=== PATIENT | female | born 1965 | race American Indian/Alaskan Native ===

== ENCOUNTER 2016-09-18 06:43 | Day surgery (SDC) | payer BC, OTHER ==
[2016-09-18] MEDS ORDERED: Lactated Ringers 1,000 ML IV SCH (06:45)
[2016-09-18] MEDS ORDERED: Sodium Chloride 0.9% 10 ML Syringe FLUSH PRN (06:45)
[2016-09-18] MEDS ORDERED: Midazolam 1 MG/ML 2 ML SDV IV ONE (08:00)
[2016-09-18] MEDS ORDERED: Propofol 200 MG/20 ML SDV IV ONE (08:00)
[2016-09-18] MEDS ORDERED: Lidocaine 2% 100 MG/5 ML Syringe IVPUSH ONE (08:00)
--- NOTE | 2016-09-18 08:46 | PCM.OPNOTE ---
- General Post-Op/Procedure Note Date of Surgery/Procedure: 09/18/16 Operative Procedure(s): egd with bx. c scope Findings: gastritis sigmoid diverticulosis Pre Op Diagnosis: abd pain. bleeding per rectum Post-Op Diagnosis: gastritis. sigmoid diverticulosis Primary Surgeon: Mike Turcios Anesthesia Provider: Jo Lambert Pathology: stomach Complications: None Condition: Good Free Text/Narrative:: see dictation
[2016-09-18 10:23] VITALS: BP 119/59
--- NOTE | 2016-09-18 13:30 | OR ---
DATE OF OPERATION: 09/18/2016 SURGEON: Mike Turcios MD PROCEDURE PERFORMED: Esophagogastroduodenoscopy with cold forceps biopsy and colonoscopy. PREOPERATIVE DIAGNOSES: Abdominal pain and bleeding per rectum. POSTOPERATIVE DIAGNOSES: Gastritis and sigmoid diverticulosis. INDICATIONS FOR PROCEDURE: This is a 51-year-old white female, who is referred with the above-mentioned complaints, claims primarily in the right upper quadrant. Ultrasound workup to date has been negative. She also notes that she has had some occasional bright red blood per rectum. She was offered and accepted an EGD and colonoscope. DESCRIPTION OF OPERATION: After an excellent IV sedation was administered, the bite-block was inserted. The flexible endoscope was passed without difficulty down the patient's esophagus, into the stomach. The stomach was insufflated. The scope was passed through the pylorus to the second portion of duodenum and slowly withdrawn. The following findings were noted. Duodenum is unremarkable. The stomach demonstrated mild gastritis. Biopsies were taken. Esophagus unremarkable. Attention was then turned to the colon. Digital rectal exam was performed. No marked abnormality was noted. The flexible colonoscope was inserted and advanced to the cecum. The prep was good. There were areas that we had to irrigate, but we did get an adequate view of the mucosa. The following findings were noted. Ascending colon, unremarkable. Transverse colon, unremarkable. Descending colon, unremarkable. Sigmoid, mild diverticulosis. Rectum and anus, unremarkable. On retroflexing the scope, there was really no evidence of internal hemorrhoids to explain the bleeding. The scope was removed. The patient was taken to recovery in good condition. /[id number] /DEMETRICEL
== END 2016-09-18 10:16 | disposition home or self-care (01) ==
LOC: FB.SDS 06:43
PROVIDERS: ATTEND Surgery
DX: K57.30 Diverticulosis of large intestine without perforation or abscess without bleeding (principal); K31.89 Other diseases of stomach and duodenum; I10 Essential (primary) hypertension; E11.9 Type 2 diabetes mellitus without complications; F43.10 Post-traumatic stress disorder, unspecified; J44.1 Chronic obstructive pulmonary disease with (acute) exacerbation; J45.909 Unspecified asthma, uncomplicated; Z88.1 Allergy status to other antibiotic agents; Z88.2 Allergy status to sulfonamides; Z88.8 Allergy status to other drugs, medicaments and biological substances; Z79.4 Long term (current) use of insulin; Z79.899 Other long term (current) drug therapy; Z79.2 Long term (current) use of antibiotics; Z79.82 Long term (current) use of aspirin; Z98.890 Other specified postprocedural states; F31.9 Bipolar disorder, unspecified; F32.9 Major depressive disorder, single episode, unspecified; F41.9 Anxiety disorder, unspecified; F17.210 Nicotine dependence, cigarettes, uncomplicated
CPT/HCPCS: 43239; 45378; 81025; 82962; 88305; 88342; J2250; J2704; J7120

== ENCOUNTER 2016-10-27 09:24 | Emergency (ER) | payer BC, OTHER ==
[2016-10-27] MEDS ORDERED: HYDROmorphone 2 MG/ML SDV IM ONE ×2 (10:31→11:58)
[2016-10-27] MEDS ORDERED: Ondansetron 4 MG Tab.DIS PO ONE (10:32)
--- NOTE | 2016-10-27 12:17 | CT ---
INDICATION: Severe T2 through T12 back pain, chronic with exacerbation, question compression fracture. CT THORACIC SPINE WITHOUT CONTRAST: Spiral 2.5-mm axial sections were obtained through the thoracic spine with sagittal and coronal reconstructions, and revealed dextroconcave scoliosis of the lower thoracic spine. Bridging hyperostotic changes are noted from the upper through the lower thoracic spine, most severe at the T7 through T12 levels. These bridging hyperostotic changes are seen anterolaterally. A healing fracture site that is transverse and vertical is also noted at the T8 vertebral body, involving its caudal right lateral aspect anteriorly and extending posteriorly. Sclerosis is noted at the fracture site, compatible with a healing fracture site of significant duration - this is not an acute process. A definite acute fracture or dislocation was not identified. In the lower thoracic spine, there are vacuum disk phenomena compatible with degenerative disk changes. IMPRESSION: 1. Healing fracture site T8 vertebral body in good position and alignment. 2. Bridging hyperostotic changes throughout almost the entire thoracic spine, with no significant degenerative changes seen at T1-2 and only minimal degenerative changes at T2-3. The remainder of the vertebral bodies shows bridging hyperostotic change. 3. Dextroconcave scoliosis lower thoracic spine centered at approximately T10 level. Report was called to Dr. Renteria at approximately 1125 hours, 10/27/2016. Total Exam DLP = 1657.18 mGy-cm. MTDD
[2016-10-27 12:59] VITALS: BP 123/64
--- NOTE | 2016-10-28 05:00 | ER ---
DATE SEEN: 10/27/2016 ADDENDUM: TIME SEEN: The patient was seen at 0948 hours. /[id number] LAQUITA/PRISCILLA
--- NOTE | 2016-11-01 15:01 | ER ---
DATE SEEN: 10/27/2016 HISTORY OF PRESENT ILLNESS: This 51-year-old has chief complaint of right upper quadrant and right lower chest discomfort. One week ago had a temperature of 102.6. She has had right upper quadrant pain off and on for the last 2 to 3 months, 5/ 10 in intensity. Now it is 10/10 in intensity. "I can't take the pain anymore." She has pain mostly in the subcostal region on the right side and it is difficult for her to sit or stand and notes that the pain decreases with careful decreased respiratory effort. She is currently groaning as she has so much pain. PAST MEDICAL HISTORY: Demonstrates 6 CAT scans from 01/23/2016 through 11/04/2011. Two ultrasounds of the abdomen. An MRI of the lumbar spine, 08/01/2013. Previous past medical history significant for migraines, chest pain, hypertension, abdominal pain, depression, suicidal behavior, and low back pain. She is morbidly obese at 320 pounds, 5 feet 5 inches (BMI 53.3). COPD, type 2 diabetes, and dyslipidemia. Juncal for depression - bipolar. Adderall for narcolepsy, falls asleep during the daytime and sleep dysfunction with obstructive sleep apnea secondary to her obesity resulting in difficulty sleeping at night and "the Adderall keeps her up." Psoriasis. Chronic migraines, joint pains, and mini strokes 2013. Previous EGD, 09/19/2016 and colonoscopy for abdominal rectal bleed . Documented gastritis and sigmoid diverticulosis. 01/23/2016, CT of the abdomen demonstrated liver fatty infiltrates (rule out NAFLD). Previous EKG, 09/14/2015, normal sinus rhythm. SOCIAL HISTORY: The patient lives alone. 4, para 4-0-0-4. Never . PAST SURGICAL HISTORY: Hysterectomy, lower back L5-S1 fusion, interbody fusion graft and farhan placement, and laminectomy. HABITS: Former smoker. Alcohol, occasionally in the last 9 months. ALLERGIES: Acetaminophen, Keflex, Cipro, codeine, Cataflam (diclofenac), prednisone-swelling, and Bactrim. Hives from acetaminophen. CURRENT MEDICATIONS: 1. Atorvastatin 10 mg daily. 2. Venlafaxine 25 mg daily. 3. Imitrex 50 mg as directed. 4. Zofran p.r.n. 5. Nitrostat p.r.n. 0.4 mg. 6. Juncal carbonate 300 mg b.i.d. 7. Lisinopril 20 mg daily. 8. Imdur 30 mg daily. 9. Insulin 60 units at bedtime. 10.Aspart 60 units t.i.d. 11.Vicodin. 12.Hydrochlorothiazide. 13.Dulera (formoterol/mometasone). 14.Fluticasone daily. 15.Colace daily. 16.Aspirin daily - 81 mg. 17.Adderall 25 mg daily. 18.Albuterol p.r.n. REVIEW OF SYSTEMS: GENERAL: She has fibromyalgia. She has pain all over. In general, it appears she dislikes people touching her. HEENT: Negative. No compromise in vision. No neck stiffness. She has poor dentition. CARDIORESPIRATORY: No shortness of breath. No chest pain. No irregular heartbeat. ABDOMEN: Markedly increased abdominal girth that makes it difficult for her to breathe. EXTREMITIES: Difficulty with walking because of extensive obesity. Marked joint aches. No swelling of ankles. PHYSICAL EXAMINATION: VITAL SIGNS: Blood pressure 114/72, heart rate 92, respirations 18, oxygen saturation 97% on room air, and temperature 38.1 degrees centigrade. CONSTITUTIONAL: The patient is massively obese, 55.3 BMI. She is uncomfortable. Has slight difficulty breathing because of massive obesity. HEENT: PERRLA intact. Pharynx without abnormality. Macroglossia. NECK: Very full neck. LUNGS: Clear to auscultation without rales. HEART: S1, S2. No irregular rate or rhythm. ABDOMEN: Soft, but massive increased abdominal girth. No hernia. CHEST: She has marked right chest discomfort. MUSCULOSKELETAL: On palpation of the T2 through L4-L5 spinous processes, there is marked tenderness. The most thoracic pain involves the lower 10 thoracic vertebrae. Marked pain and radiation to the right ribs 8, 9, 10 to the right chest, mostly involves the 8th rib. She has reproducible chest pain with the palpation of the 8th costochondral rib joint and the 9th and 10th subchondral joints. There are occasional rales, right anterior base. NEUROLOGIC: Deep tendon reflexes absent, upper and lower extremities. Marked obesity with no edema of the lower extremities. Dorsalis pedis is present and no clubbing of fingers. IMAGING: X-ray reveals subacute right anterolateral fracture of the base of the 8th vertebra. ASSESSMENT: 1. Morbid obesity. 2. Subacute right anterolateral fracture of the base of the 8th thoracic vertebra. This is causing referred right chest rib pain and RUQ pain referred to the abdomen by the cluneal nerves. 3. Obstructive sleep apnea. 4. Morbid obesity. 5. Chronic obstructive lung disease. 6. Hypertension. 7. Depression, not suicidal. 8. Chronic low back pain. 9. Type 2 diabetes. 10.Dyslipidemia. 11.Daytime narcolepsy whichse treat with Adeeral to keep awake during theday light hours and sleep disturbance at night secondary to Adderall keeping her awake. 12.Status post hysterectomy. 13.Status post laminectomy, L5-S1 fusion interbody graft with posterior farhan placement. 14.History of migraines. PLAN: The patient was treated with pain medicine and then will follow up with her doctor in a week, earlier if worse. /[id number] LAQUITA/PRISCILLA FIELD
== END 2016-10-27 12:40 | disposition home or self-care (01) ==
LOC: FB.ED 09:24
DX: S22.069A Unspecified fracture of T7-T8 vertebra, initial encounter for closed fracture (principal); E66.01 Morbid (severe) obesity due to excess calories; G47.33 Obstructive sleep apnea (adult) (pediatric); J44.9 Chronic obstructive pulmonary disease, unspecified; L40.9 Psoriasis, unspecified; G43.909 Migraine, unspecified, not intractable, without status migrainosus; I10 Essential (primary) hypertension; F32.9 Major depressive disorder, single episode, unspecified; E11.9 Type 2 diabetes mellitus without complications; E78.5 Hyperlipidemia, unspecified; F31.9 Bipolar disorder, unspecified; Z86.69 Personal history of other diseases of the nervous system and sense organs; Z88.8 Allergy status to other drugs, medicaments and biological substances; Z88.5 Allergy status to narcotic agent; Z79.899 Other long term (current) drug therapy; Z68.43 Body mass index [BMI] 50.0-59.9, adult; Z90.710 Acquired absence of both cervix and uterus; Z98.890 Other specified postprocedural states; Z79.4 Long term (current) use of insulin; Z79.82 Long term (current) use of aspirin; X58.XXXA Exposure to other specified factors, initial encounter
CPT/HCPCS: 36415; 72128; 80053; 96372; 99284; A9270; J1170

== ENCOUNTER 2017-07-24 12:57 | Emergency (ER) | payer BC, OTHER ==
--- NOTE | 2017-07-24 13:36 | EDM.PDOC ---
ED HPI GENERAL MEDICAL PROBLEM - General Chief Complaint: General Stated Complaint: CHEST PAIN Time Seen by Provider: 07/24/17 13:10 Source of Information: Reports: Patient History Limitations: Reports: No Limitations - History of Present Illness INITIAL COMMENTS - FREE TEXT/NARRATIVE: C/O LUQ pain since this AM no f/c/d, no n/v, no BM today, inc'd with DB and moving and walking EGD and colonoscopy 10m ago showed diverticulosis and gastritis works at [employer] also pain at R flank times years states HR inc'd 170 1m ago, not seen then, HR 115 now last saw PCP Dr Garland 1m ago for a cough - Related Data Allergies Allergy/AdvReac Type Severity Reaction Status Date / Time acetaminophen [From Percocet] Allergy Hives Verified 07/24/17 13:17 cephalexin monohydrate Allergy Difficulty Verified 07/24/17 13:17 [From Keflex] Breathing ciprofloxacin [From Cipro] Allergy Hives Verified 07/24/17 13:17 ciprofloxacin HCl Allergy Hives Verified 07/24/17 13:17 [From Cipro] codeine Allergy Hives Verified 07/24/17 13:17 diclofenac [From Cataflam] Allergy Hives Verified 07/24/17 13:17 prednisone Allergy Swelling Verified 07/24/17 13:17 sulfamethoxazole Allergy Other Verified 07/24/17 13:17 [From Bactrim] trimethoprim [From Bactrim] Allergy Other Verified 07/24/17 13:17 Home Meds: Home Meds Hydrochlorothiazide 25 mg PO DAILY 01/04/14 [History] Lisinopril [Prinivil] 20 mg PO DAILY 01/04/14 [History] Albuterol [Proventil HFA] 2 puff INH Q4H PRN 06/19/14 [History] Fluticasone Propionate [Flonase] 2 sprays NASBOTH DAILY PRN 06/19/14 [History] Formoterol/Mometasone [Dulera 100 MCG/5 MCG] 2 puff INH BID 06/19/14 [History] Insulin Aspart [NovoLOG] 60 units SQ TIDAC 06/19/14 [History] atorvaSTATin [Lipitor] 10 mg PO DAILY 06/19/14 [History] Insulin Detemir [Levemir] 60 units SQ BEDTIME 02/19/15 [History] Aspirin [Halfprin] 81 mg PO DAILY 04/29/15 [History] Docusate Sodium [Colace] 100 mg PO BID 04/29/15 [History] SUMAtriptan [Imitrex] 50 mg PO ASDIRECTED PRN 04/29/15 [History] Ondansetron [Zofran ODT] 4 mg PO Q6H PRN #7 tab.dis 01/23/16 [Rx] Isosorbide Mononitrate [Imdur] 30 mg PO DAILY 09/15/16 [History] Nitroglycerin [Nitrostat] 0.4 mg SL ASDIRECTED PRN 09/15/16 [History] Amphetamine/Dextroamphetamine [Adderall] 25 mg PO DAILY 09/18/16 [History] Hydrocodone/Acetaminophen [[place] 5-325] 5 - 325 mg PO Q4H PRN 09/18/16 [History] [place] Carbonate 300 mg PO BID 09/18/16 [History] Venlafaxine [Effexor] 25 mg PO DAILY 09/18/16 [History] HYDROmorphone HCl [Dilaudid] 2 mg PO Q6HR #20 tablet 10/27/16 [Rx] fentaNYL [Duragesic] 75 mcg TRDERM Q72H #6 patch 10/27/16 [Rx] Past Medical History HEENT History: Reports: Allergic Rhinitis Cardiovascular History: Reports: Heart Failure, High Cholesterol, Hypertension Respiratory History: Reports: Asthma, COPD, Sleep Apnea Other Gastrointestinal History: constipation [employer]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: , Other (See Below) Other OB/BYN History: Uterine tumor removal and Uterine cysts removal Musculoskeletal History: Reports: Arthritis Neurological History: Reports: TIA Psychiatric History: Reports: Anxiety, Depression, Psych Hospitalization(s), Suicide Attempt, Suicidal Ideation Endocrine/Metabolic History: Reports: Diabetes, Type II Oncologic (Cancer) History: Reports: Uterine Other Oncologic History: small tumor removed Dermatologic History: Reports: Psoriasis, Other (See Below) Other Dermatologic History: on lower legs - Infectious Disease History Infectious Disease History: Reports: Chicken Pox - Past Surgical History GI Surgical History: Reports: Colonoscopy Musculoskeletal Surgical History: Reports: None Other Musculoskeletal Surgeries/Procedures:: vertebral fusion 2014 Oncologic Surgical History: Reports: None Social & Family History - Family History HEENT: Reports: Glaucoma Cardiac: Reports: Heart Failure, Hypertension, [place] Respiratory: Reports: Asthma, COPD : Reports: Renal Disease/Insufficiency OBGYN: Reports: Fibroids Musculoskeletal: Reports: Arthritis, Back pain, Chronic, Fibromyalgia, Gout Other Neurological Family History: stroke Endocrine/Metabolic: Reports: Diabetes, type II Hematologic: Reports: Anemia Dermatologic: Reports: Other (See Below) Other Dermatologic Family History: open ulcers Oncologic: Reports: Breast, Renal, Uterine - Tobacco Use Smoking Status *Q: Former Smoker Years of Tobacco use: 39 Packs/Tins Daily: 2 Used Tobacco, but Quit: Yes Month Tobacco Last Used: 3 years ago Second Hand Smoke Exposure: No - Caffeine Use Caffeine Use: Reports: Soda - Alcohol Use Days Per Week of Alcohol Use: 1 Number of Drinks Per Day: 1 Total Drinks Per Week: 1 - Recreational Drug Use Recreational Drug Use: No ED ROS GENERAL - Review of Systems Review Of Systems: See Below Constitutional: Denies: Fever, Chills HEENT: Reports: No Symptoms Respiratory: Reports: No Symptoms Cardiovascular: Reports: No Symptoms Endocrine: Reports: No Symptoms GI/Abdominal: Reports: Abdominal Pain. Denies: Nausea, Vomiting : Reports: No Symptoms Musculoskeletal: Reports: No Symptoms Skin: Reports: No Symptoms Neurological: Reports: No Symptoms Psychiatric: Reports: No Symptoms Hematologic/Lymphatic: Reports: No Symptoms Immunologic: Reports: No Symptoms ED EXAM, GENERAL - Physical Exam Exam: See Below Exam Limited By: No Limitations General Appearance: Alert, WD/WN, Mild Distress, Other (nontoxic, alert, appears mildly uncomfortable) Eye Exam: Bilateral Eye: Normal Inspection Ears: Normal External Exam Nose: Normal Inspection Throat/Mouth: Normal Inspection, Normal Lips, Normal Teeth, Normal Gums, Normal Oropharynx, Normal Voice, No Airway Compromise Head: Atraumatic, Normocephalic Neck: Normal Inspection, Supple, Non-Tender, Full Range of Motion Respiratory/Chest: No Respiratory Distress, Lungs Clear, Normal Breath Sounds, No Accessory Muscle Use, Chest Non-Tender Cardiovascular: No Gallop, No JVD, No Rub, Tachycardia, Other (2/6 ANDRZEJ at LSB, quiet precordium, regular). No: Gallop/S3, Gallop/S4 GI/Abdominal: Normal Bowel Sounds, Soft, No Organomegaly, No Distention, No Mass , Other (no definite tender at LUQ or L ribs). No: Hepatomegaly, Splenomegaly Back Exam: Normal Inspection, Full Range of Motion. No: CVA Tenderness (R), CVA Tenderness (L) Extremities: Normal Inspection, Normal Range of Motion, Non-Tender, Other (1+ edema to knees b/l) Neurological: Alert, Oriented, CN II-XII Intact, Normal Cognition, No Motor/ Sensory Deficits Psychiatric: Normal Affect Skin Exam: Warm, Dry, Intact, Normal Color, No Rash Lymphatic: No Adenopathy Course - Vital Signs Last Recorded V/S: Last Vital Signs Temp Pulse 90 07/24/17 16:39 Resp 25 H 07/24/17 16:39 BP 132/63 07/24/17 16:39 Pulse Ox 98 07/24/17 16:39 - Orders/Labs/Meds Orders: Active Orders 24 hr Category Date Time Status Abdomen 2V AP Flat Upright [CR] Stat Exams 07/24/17 13:29 Taken Abdomen Pelvis w Cont [CT] Stat Exams 07/24/17 14:50 Taken Chest 2V [CR] Stat Exams 07/24/17 13:29 Taken LIPASE [REF] Stat Lab 07/24/17 13:50 Received Diatrizoate Vidhya/Diatrizoate Na [Gastrografin 37%] Med 07/24/17 15:15 Active 30 ml PO . DIRECTED Sodium Chloride 0.9% [Normal Saline] 1,000 ml Med 07/24/17 15:00 Active IV ASDIRECTED Sodium Chloride 0.9% [Normal Saline] 1,000 ml Med 07/24/17 16:45 Active IV ASDIRECTED Sodium Chloride 0.9% [Saline Flush] Med 07/24/17 15:22 Active 10 ml FLUSH ASDIRECTED PRN Saline Lock Insert [OM.PC] Routine Oth 07/24/17 15:22 Ordered EKG 12 Lead [EK] Routine Ther 07/24/17 13:29 Ordered Medication Orders Diatrizoate Meglum/Diatrizoate Sod (Gastrografin 37%) 30 ml PO . DIRECTED MANJIT Last Admin: 07/24/17 16:50 Dose: 30 ml Sodium Chloride (Normal Saline) 1,000 mls @ 999 mls/hr IV ASDIRECTED MANJIT Last Admin: 07/24/17 15:33 Dose: 999 mls/hr Sodium Chloride (Normal Saline) 1,000 mls @ 999 mls/hr IV ASDIRECTED MANJIT Last Admin: 07/24/17 16:37 Dose: 999 mls/hr Sodium Chloride (Saline Flush) 10 ml FLUSH ASDIRECTED PRN PRN Reason: Keep Vein Open Last Admin: 07/24/17 15:23 Dose: 10 ml Labs: Laboratory Tests 07/24/17 07/24/17 07/24/17 Range/Units 13:50 13:50 13:50 WBC 13.3 H (4.5-12.0) X10-3/uL RBC 5.61 H (3.23-5.20) x10(6)uL Hgb 14.2 (11.5-15.5) g/dL Hct 44.6 (30.0-51.3) % MCV 79.4 L (80-96) fL MCH 25.2 L (27.7-33.6) pg MCHC 31.8 L (32.2-35.4) g/dL RDW 15.8 H (11.5-15.5) % Plt Count 322 (125-369) X10(3)uL MPV 8.2 (7.4-10.4) fL Neut % (Auto) 72.3 (46-82) % Lymph % (Auto) 19.1 (13-37) % Parke % (Auto) 6.1 (4-12) % Eos % (Auto) 2 (1.0-5.0) % Baso % (Auto) 1 (0-2) % Neut # (Auto) 9.6 H (1.6-8.3) # Lymph # (Auto) 2.5 (0.6-5.0) # Parke # (Auto) 0.8 (0.0-1.3) # Eos # (Auto) 0.3 (0.0-0.8) # Baso # (Auto) 0.1 (0.0-0.2) # Sodium 142 (135-145) mmol/L Potassium 3.7 (3.5-5.3) mmol/L Chloride 103 (100-110) mmol/L Carbon Dioxide 27 (21-32) mmol/L BUN 19 H (7-18) mg/dL Creatinine 1.1 H (0.55-1.02) mg/dL Est Cr Clr Drug Dosing 53.83 mL/min Estimated GFR (MDRD) 52 L (>60) BUN/Creatinine Ratio 17.3 (9-20) Glucose 92 (80-116) mg/dL Calcium 9.9 (8.6-10.2) mg/dL Total Bilirubin 0.3 (0.1-1.3) mg/dL AST 35 H (5-25) IU/L ALT 36 (12-36) U/L Alkaline Phosphatase 181 H (56-112) IU/L Troponin I < 0.017 L (<0.017-0.056) ng/mL C-Reactive Protein 2.3 H (0.5-0.9) mg/dL NT-Pro-B Natriuret Pep 27 (<=125) pg/mL Total Protein 8.3 H (6.0-8.0) g/dL Albumin 3.4 L (3.5-5.2) g/dL Globulin 4.9 g/dL Albumin/Globulin Ratio 0.7 Amylase 60 (25-115) U/L Urine Color (YELLOW) Urine Appearance (CLEAR) Urine pH (5.0-6.5) Ur Specific Lynn (1.010-1.025) Urine Protein (NEGATIVE) mg/dL Urine Glucose (UA) (NEGATIVE) mg/dL Urine Ketones (NEGATIVE) mg/dL Urine Occult Blood (NEGATIVE) Urine Nitrite (NEGATIVE) Urine Bilirubin (NEGATIVE) Urine Urobilinogen (NEGATIVE) mg/dL Ur Leukocyte Esterase (NEGATIVE) Urine RBC (0) Urine WBC (0) Ur Squamous Epith Cells (NS,R,O) Urine Bacteria (NS) Urine Yeast (NS) Urine Opiates Screen (NEGATIVE) Ur Oxycodone Screen (NEGATIVE) Ur Propoxyphene Screen (NEGATIVE) Ur Barbituates Screen (NEGATIVE) Ur Tricyclics Screen (NEGATIVE) Ur Phencyclidine Scrn (NEGATIVE) Ur Amphetamine Screen (NEGATIVE) Urine MDMA Screen (NEGATIVE) U Benzodiazepines Scrn (NEGATIVE) U Cocaine Metab Screen (NEGATIVE) U Marijuana (THC) Screen (NEGATIVE) 07/24/17 07/24/17 Range/Units 14:39 14:39 WBC (4.5-12.0) X10-3/uL RBC (3.23-5.20) x10(6)uL Hgb (11.5-15.5) g/dL Hct (30.0-51.3) % MCV (80-96) fL MCH (27.7-33.6) pg MCHC (32.2-35.4) g/dL RDW (11.5-15.5) % Plt Count (125-369) X10(3)uL MPV (7.4-10.4) fL Neut % (Auto) (46-82) % Lymph % (Auto) (13-37) % [place]ke % (Auto) (4-12) % Eos % (Auto) (1.0-5.0) % Baso % (Auto) (0-2) % Neut # (Auto) (1.6-8.3) # Lymph # (Auto) (0.6-5.0) # Parke # (Auto) (0.0-1.3) # Eos # (Auto) (0.0-0.8) # Baso # (Auto) (0.0-0.2) # Sodium (135-145) mmol/L Potassium (3.5-5.3) mmol/L Chloride (100-110) mmol/L Carbon Dioxide (21-32) mmol/L BUN (7-18) mg/dL Creatinine (0.55-1.02) mg/dL Est Cr Clr Drug Dosing mL/min Estimated GFR (MDRD) (>60) BUN/Creatinine Ratio (9-20) Glucose (80-116) mg/dL Calcium (8.6-10.2) mg/dL Total Bilirubin (0.1-1.3) mg/dL AST (5-25) IU/L ALT (12-36) U/L Alkaline Phosphatase (56-112) IU/L Troponin I (<0.017-0.056) ng/mL C-Reactive Protein (0.5-0.9) mg/dL NT-Pro-B Natriuret Pep (<=125) pg/mL Total Protein (6.0-8.0) g/dL Albumin (3.5-5.2) g/dL Globulin g/dL Albumin/Globulin Ratio Amylase (25-115) U/L Urine Color Yellow (YELLOW) Urine Appearance Slightly cloudy (CLEAR) Urine pH 5.0 (5.0-6.5) Ur Specific Lynn 1.010 (1.010-1.025) Urine Protein Trace (NEGATIVE) mg/dL Urine Glucose (UA) Normal (NEGATIVE) mg/dL Urine Ketones 15 H (NEGATIVE) mg/dL Urine Occult Blood Moderate H (NEGATIVE) Urine Nitrite Negative (NEGATIVE) Urine Bilirubin Small H (NEGATIVE) Urine Urobilinogen Normal (NEGATIVE) mg/dL Ur Leukocyte Esterase Negative (NEGATIVE) Urine RBC 0-5 (0) Urine WBC 0-5 (0) Ur Squamous Epith Cells Few H (NS,R,O) Urine Bacteria Rare H (NS) Urine Yeast Few H (NS) Urine Opiates Screen Negative (NEGATIVE) Ur Oxycodone Screen Negative (NEGATIVE) Ur Propoxyphene Screen Negative (NEGATIVE) Ur Barbituates Screen Negative (NEGATIVE) Ur Tricyclics Screen Positive H (NEGATIVE) Ur Phencyclidine Scrn Negative (NEGATIVE) Ur Amphetamine Screen Negative (NEGATIVE) Urine MDMA Screen Negative (NEGATIVE) U Benzodiazepines Scrn Negative (NEGATIVE) U Cocaine Metab Screen Negative (NEGATIVE) U Marijuana (THC) Screen Negative (NEGATIVE) Meds: Medications Generic Name Dose Route Start Last Admin Trade Name Freq PRN Reason Stop Dose Admin Diatrizoate Meglum/Diatrizoate Sod 30 ml 07/24/17 15:15 07/24/17 16:50 Gastrografin 37% PO 30 ml . DIRECTED MANJIT Administration Sodium Chloride 1,000 mls @ 999 mls/hr 07/24/17 15:00 07/24/17 15:33 Normal Saline IV 999 mls/hr ASDIRECTED MANJIT Administration Sodium Chloride 1,000 mls @ 999 mls/hr 07/24/17 16:45 07/24/17 16:37 Normal Saline IV 999 mls/hr ASDIRECTED MANJIT Administration Sodium Chloride 10 ml 07/24/17 15:22 07/24/17 15:23 Saline Flush FLUSH 10 ml ASDIRECTED PRN Administration Keep Vein Open Discontinued Medications Generic Name Dose Route Start Last Admin Trade Name Freq PRN Reason Stop Dose Admin Iopamidol 150 ml 07/24/17 15:11 07/24/17 16:50 Isovue-370 (76%) IV 07/24/17 15:12 150 ml ONETIME ONE Administration Ketorolac Tromethamine 60 mg 07/24/17 13:47 07/24/17 14:30 Toradol IM 07/24/17 13:48 60 mg ONETIME ONE Administration - Re-Assessments/Exams Free Text/Narrative Re-Assessment/Exam: 07/24/17 17:38 HR came down nicely with IVF, moderate increase in BUN/creat and TP c/w dehydration, pain better, CT abd/pelvis neg, CxR 2v neg, abd XR shows severe DJD with bridging and scoliosis, pt not taking pain meds currently d/t Fentanyl making her tired does not need a note for work pt thinks soreness at L ribs may be d/t here cough, which is reasonable, remains tender to touch at L lower hemithorax at AAL Departure - Departure Time of Disposition: 17:40 Disposition: Home, Self-Care 01 Condition: Good Clinical Impression: Muscle strain of chest wall - Discharge Information Instructions: Muscle Strain, [id number] Referrals: Aldo Garland MD [Primary Care Provider] - Forms: ED Department Discharge Additional Instructions: For pain and inflammation, take ibuprofen 200 mg 3 tabs and acetaminophen 500 mg 2 tabs 4 times a day for 5-7 days. Use heat for 10 minutes 4 times a day for 2 days. Increase fluids. Get adequate rest. May resume usual activities tomorrow. See your doctor in 2 days. Call your Physician or Return to Emergency Department if: * Your condition worsens in any way. * You develop fever greater than 100.4. * You have vomitting that does not stop with medications. * You have pain that is not controlled with medications. - My Orders Last 24 Hours: My Active Orders 07/24/17 13:29 Abdomen 2V AP Flat Upright [CR] Stat Chest 2V [CR] Stat EKG 12 Lead [EK] Routine 07/24/17 13:50 LIPASE [REF] Stat 07/24/17 14:50 Abdomen Pelvis w Cont [CT] Stat 07/24/17 15:00 Sodium Chloride 0.9% [Normal Saline] 1,000 ml IV ASDIRECTED 07/24/17 15:15 Diatrizoate Vidhya/Diatrizoate Na [Gastrografin 37%] 30 ml PO . DIRECTED 07/24/17 15:22 Sodium Chloride 0.9% [Saline Flush] 10 ml FLUSH ASDIRECTED PRN Saline Lock Insert [OM.PC] Routine 07/24/17 16:45 Sodium Chloride 0.9% [Normal Saline] 1,000 ml IV ASDIRECTED - Assessment/Plan Last 24 Hours: My Active Orders 07/24/17 13:29 Abdomen 2V AP Flat Upright [CR] Stat Chest 2V [CR] Stat EKG 12 Lead [EK] Routine 07/24/17 13:50 LIPASE [REF] Stat 07/24/17 14:50 Abdomen Pelvis w Cont [CT] Stat 07/24/17 15:00 Sodium Chloride 0.9% [Normal Saline] 1,000 ml IV ASDIRECTED 07/24/17 15:15 Diatrizoate Vidhya/Diatrizoate Na [Gastrografin 37%] 30 ml PO . DIRECTED 07/24/17 15:22 Sodium Chloride 0.9% [Saline Flush] 10 ml FLUSH ASDIRECTED PRN Saline Lock Insert [OM.PC] Routine 07/24/17 16:45 Sodium Chloride 0.9% [Normal Saline] 1,000 ml IV ASDIRECTED
[2017-07-24] MEDS: Ketorolac 60 MG/2 ML SDV IM ONE (14:30)
[2017-07-24] MEDS: Sodium Chloride 0.9% 10 ML Syringe FLUSH PRN (15:23)
[2017-07-24] MEDS: Sodium Chloride 0.9% 1,000 ML IV SCH ×2 (15:33→16:37)
[2017-07-24] MEDS: Iopamidol 755 MG/ML 150 ML Bottle IV ONE (16:50)
[2017-07-24] MEDS: Diatrizoate Meglumine/Diatrizoate Sodium 37% 30 ML Bottle PO SCH (16:50)
[2017-07-24 17:48] VITALS: BP 122/56
--- NOTE | 2017-07-25 09:32 | CR ---
INDICATION: Left upper quadrant pain. CHEST: PA and lateral views of the chest were obtained 07/24/2017 and were compared with 09/14/2015 and 04/29/2015. There is again noted evidence of exogenous obesity. The heart appears enlarged. The aorta is minimally tortuous with minimal calcification also noted in the arch of the aorta. Hypertrophic degenerative changes off vertebral bodies anterolaterally are noted with mild dextroconcave scoliosis lower thoracic spine. Overlying EKG leads are noted. No free air is noted in the hemidiaphragm leaves. A definite active infiltrate or effusion was not seen with markings appearing similar to the previous examinations. IMPRESSION: 1. No acute process. 2. ASHD with cardiomegaly. 3. Exogenous obesity. 4. DJD spine. MTDD
--- NOTE | 2017-07-25 09:40 | CR ---
INDICATION: Abdominal pain in left upper quadrant. 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 There is again noted a fusion at L5-S1 with rods and pedicle screws and disk spacers. Bridging hyperostotic changes are noted, mostly in the upper lumbar spine. The pattern of gas and feces is nonspecific without evidence of free air or obstruction. No definite organomegaly or mass lesions were identified, except to note a minimally distended loop of jejunum in the left mid abdomen - just above the pelvis. Etiology is indeterminate. It could represent a loop of bowel with edematous osei due to any number of causes. No pathologic calcifications were noted. IMPRESSION: For the most part, nonacute abdomen; however, there is one loop of what appears to be jejunum with suggestion of some thickening of the wall. This could be on the basis of edema and should be correlated clinically. No definite acute bowel obstruction was seen at this time. MTDD
--- NOTE | 2017-07-25 10:32 | CT ---
INDICATION: Left upper quadrant pain times eight hours, history of diverticulitis, history of gastritis. CT ABDOMEN AND CT PELVIS WITH CONTRAST: Spiral 2.5 mm axial sections were obtained through the abdomen and pelvis with oral and IV contrast (148 mL Isovue 370 at 3 mL/second), with sagittal and coronal reconstructions, 2017, and were compared with 01/23/2016. Total exam DLP = 1,465.37 mGy-cm. There appears to be some patchy infiltration in the right lower lobe, which may be on the basis of minimal bronchopneumonia and/or fibrosis - the appearance appears similar to the previous study. The heart appeared normal in size. No pericardial effusion is noted. The liver is slightly increased in size and decreased in density, compared with the previous study, suggesting fatty infiltration of the liver. No gallstones were demonstrated. The adrenal glands appeared normal. The kidneys showed evidence of very minimal cortical scarring but were otherwise normal in appearance. The spleen appeared normal with a probable splenule anterolaterally. The pancreas appeared normal. The retroperitoneum showed no evidence of significant mass lesions with mild degree of lymphadenopathy, which is nonspecific. Calcifications are noted in the abdominal aorta. The appendix appeared normal and is visualized on coronal images #41 through #54. No evidence of bowel obstruction or free air was identified. No gastric wall thickening or hiatal hernia was seen. Minimal proximal sigmoid diverticulosis is noted without evidence of diverticulitis. The urinary bladder was unremarkable. The uterus appeared similar to the previous study and unremarkable. No additional organomegaly, mass lesions, or free fluid collections were identified in the abdomen or pelvis. Fusion is again noted at L5-S1 with rods and pedicle screws and disk spacer and appears stable. Bridging hyperostotic changes are noted in the thoracic spine and thoracolumbar area. IMPRESSION: 1. Probable fatty infiltration of the liver. 2. Minimal ASD. 3. Probable minimal fibrosis of the lung at the right lower lobe. 4. Minimal renal cortical scarring. 5. Stable fusion L5-S1. 6. Minimal proximal sigmoid diverticulosis without evidence of diverticulitis. Report was called to Dr. Lyn at 1726 hours on 07/24/2017. [facility]
== END 2017-07-24 17:48 | disposition home or self-care (01) ==
LOC: FB.ED 12:57
DX: S29.011A Strain of muscle and tendon of front wall of thorax, initial encounter (principal); E78.00 Pure hypercholesterolemia, unspecified; I11.0 Hypertensive heart disease with heart failure; I50.9 Heart failure, unspecified; J44.9 Chronic obstructive pulmonary disease, unspecified; E11.9 Type 2 diabetes mellitus without complications; Z87.891 Personal history of nicotine dependence; Z88.8 Allergy status to other drugs, medicaments and biological substances; Z88.1 Allergy status to other antibiotic agents; Z88.2 Allergy status to sulfonamides; Z79.899 Other long term (current) drug therapy; Z79.4 Long term (current) use of insulin; Z79.82 Long term (current) use of aspirin; X58.XXXA Exposure to other specified factors, initial encounter
CPT/HCPCS: 36415; 71046; 74019; 74177; 80053; 80305; 81001; 82150; 83690; 83880; 84484; 85025; 86140; 93005; 96360; 96361; 96372; 99284; A9270-GY; J1885; J7040; J7050; Q9967

== ENCOUNTER 2017-12-04 12:33 | Emergency (ER) | payer BC, OTHER ==
--- NOTE | 2017-12-04 13:03 | EDM.PDOC ---
ED HPI GENERAL MEDICAL PROBLEM - General Chief Complaint: Chest Pain Stated Complaint: CHEST PAIN Time Seen by Provider: 12/04/17 12:58 Source of Information: Reports: Patient History Limitations: Reports: No Limitations - History of Present Illness INITIAL COMMENTS - FREE TEXT/NARRATIVE: Presents with left sided chest pain x 2 days and persistent cough x 2 weeks. Has completed course of Penecillin and Levaquin w/o improvement of cough. Denies prior h/o CAD. Duration: Day(s): (2) Location: Reports: Chest (left) Quality: Reports: Ache Severity: Mild Associated Symptoms: Reports: Cough, Shortness of Breath - Related Data Allergies Allergy/AdvReac Type Severity Reaction Status Date / Time acetaminophen [From Percocet] Allergy Hives Verified 12/04/17 15:15 cephalexin monohydrate Allergy Difficulty Verified 12/04/17 15:15 [From Keflex] Breathing ciprofloxacin [From Cipro] Allergy Hives Verified 12/04/17 15:15 ciprofloxacin HCl Allergy Hives Verified 12/04/17 15:15 [From Cipro] codeine Allergy Hives Verified 12/04/17 15:15 diclofenac [From Cataflam] Allergy Hives Verified 12/04/17 15:15 prednisone Allergy Swelling Verified 12/04/17 15:15 sulfamethoxazole Allergy Other Verified 12/04/17 15:15 [From Bactrim] trimethoprim [From Bactrim] Allergy Other Verified 12/04/17 15:15 Home Meds: Home Meds Hydrochlorothiazide 25 mg PO DAILY 01/04/14 [History] Lisinopril [Prinivil] 20 mg PO DAILY 01/04/14 [History] Albuterol [Proventil HFA] 2 puff INH Q4H PRN 06/19/14 [History] Fluticasone Propionate [Flonase] 2 sprays NASBOTH DAILY PRN 06/19/14 [History] Formoterol/Mometasone [Dulera 100 MCG/5 MCG] 2 puff INH BID 06/19/14 [History] Insulin Aspart [NovoLOG] 60 units SQ TIDAC 06/19/14 [History] atorvaSTATin [Lipitor] 10 mg PO DAILY 06/19/14 [History] Insulin Detemir [Levemir] 60 units SQ BEDTIME 02/19/15 [History] Aspirin [Halfprin] 81 mg PO DAILY 04/29/15 [History] Docusate Sodium [Colace] 100 mg PO BID 04/29/15 [History] SUMAtriptan [Imitrex] 50 mg PO ASDIRECTED PRN 04/29/15 [History] Ondansetron [Zofran ODT] 4 mg PO Q6H PRN #7 tab.dis 01/23/16 [Rx] Isosorbide Mononitrate [Imdur] 30 mg PO DAILY 09/15/16 [History] Nitroglycerin [Nitrostat] 0.4 mg SL ASDIRECTED PRN 09/15/16 [History] Amphetamine/Dextroamphetamine [Adderall] 25 mg PO DAILY 09/18/16 [History] Hydrocodone/Acetaminophen [[place] 5-325] 5 - 325 mg PO Q4H PRN 09/18/16 [History] [place] Carbonate 300 mg PO BID 09/18/16 [History] Venlafaxine [Effexor] 25 mg PO DAILY 09/18/16 [History] HYDROmorphone HCl [Dilaudid] 2 mg PO Q6HR #20 tablet 10/27/16 [Rx] fentaNYL [Duragesic] 75 mcg TRDERM Q72H #6 patch 10/27/16 [Rx] Amoxicillin/Potassium Clav [Augmentin 500-125 Tablet] 1 each PO TID #30 tablet 12/04/17 [Rx] Past Medical History HEENT History: Reports: Allergic Rhinitis Cardiovascular History: Reports: Heart Failure (right), High Cholesterol, Hypertension Respiratory History: Reports: Asthma, COPD, Sleep Apnea Other Gastrointestinal History: constipation HOSPITALITY COORDINATOR History: Reports: , Other (See Below) Other HOSPITALITY COORDINATOR History: Uterine tumor removal and Uterine cysts removal Musculoskeletal History: Reports: Arthritis Neurological History: Reports: TIA Psychiatric History: Reports: Anxiety, Depression, Psych Hospitalization(s), Suicide Attempt, Suicidal Ideation Endocrine/Metabolic History: Reports: Diabetes, Type II Oncologic (Cancer) History: Reports: Uterine Other Oncologic History: small tumor removed Dermatologic History: Reports: Psoriasis, Other (See Below) Other Dermatologic History: on lower legs - Infectious Disease History Infectious Disease History: Reports: Chicken Pox - Past Surgical History GI Surgical History: Reports: Colonoscopy Musculoskeletal Surgical History: Reports: None Other Musculoskeletal Surgeries/Procedures:: vertebral fusion 2015 Oncologic Surgical History: Reports: None Social & Family History - Family History Family Medical History: Noncontributory HEENT: Reports: Glaucoma Cardiac: Reports: Heart Failure, Hypertension, NE Respiratory: Reports: Asthma, COPD : Reports: Renal Disease/Insufficiency OBGYN: Reports: Fibroids Musculoskeletal: Reports: Arthritis, Back pain, Chronic, Fibromyalgia, Gout Other Neurological Family History: stroke Endocrine/Metabolic: Reports: Diabetes, type II Hematologic: Reports: Anemia Dermatologic: Reports: Other (See Below) Other Dermatologic Family History: open ulcers Oncologic: Reports: Breast, Renal, Uterine - Tobacco Use Smoking Status *Q: Former Smoker - Caffeine Use Caffeine Use: Reports: Soda ED ROS GENERAL - Review of Systems Review Of Systems: See Below Constitutional: Reports: No Symptoms HEENT: Reports: No Symptoms, Other (nasal congestion) Respiratory: Reports: Shortness of Breath (intermittent), Cough, Sputum Cardiovascular: Reports: Chest Pain (left) Endocrine: Reports: No Symptoms GI/Abdominal: Reports: No Symptoms : Reports: No Symptoms Musculoskeletal: Reports: Neck Pain Skin: Reports: No Symptoms Neurological: Reports: No Symptoms Psychiatric: Reports: No Symptoms Hematologic/Lymphatic: Reports: No Symptoms Immunologic: Reports: No Symptoms ED EXAM, GENERAL - Physical Exam Exam: See Below Exam Limited By: No Limitations General Appearance: Alert, WD/WN, No Apparent Distress Ears: Normal External Exam Nose: Normal Inspection Throat/Mouth: Normal Inspection Head: Atraumatic, Normocephalic Neck: Supple Respiratory/Chest: No Respiratory Distress, Lungs Clear, Normal Breath Sounds, No Accessory Muscle Use, Other (+tenderness to left chest wall) Cardiovascular: Regular Rate, Rhythm Rectal (Female) Exam: Normal Exam Extremities: Normal Inspection Neurological: Alert, Oriented Skin Exam: Warm, Dry, Intact EKG INTERPRETATION EKG Date: 12/04/17 Time: 12:16 Rhythm: NSR Rate (Beats/Min): 80 EKG Interpretation Comments: No acute ischemia Course - Orders/Labs/Meds Orders: Active Orders 24 hr Category Date Time Status Chest w Cont [CT] Stat Exams 12/04/17 14:46 Taken CULTURE BLOOD [BC] Stat Lab 12/04/17 13:05 Received CULTURE BLOOD [BC] Stat Lab 12/04/17 13:10 Received Sodium Chloride 0.9% [Saline Flush] Med 12/04/17 14:47 Active 10 ml FLUSH ASDIRECTED PRN Blood Culture x2 Reflex Set [OM.PC] Urgent Oth 12/04/17 12:55 Ordered Saline Lock Insert [OM.PC] Routine Oth 12/04/17 14:47 Ordered Medication Orders Sodium Chloride (Saline Flush) 10 ml FLUSH ASDIRECTED PRN PRN Reason: Keep Vein Open Labs: Laboratory Tests 12/04/17 12/04/17 12/04/17 Range/Units 13:05 13:05 13:05 WBC 12.4 H (4.5-12.0) X10-3/uL RBC 4.76 (3.23-5.20) x10(6)uL Hgb 13.1 (11.5-15.5) g/dL Hct 39.8 (30.0-51.3) % MCV 83.7 (80-96) fL MCH 27.6 L (27.7-33.6) pg MCHC 32.9 (32.2-35.4) g/dL RDW 14.9 (11.5-15.5) % Plt Count 273 (125-369) X10(3)uL MPV 8.4 (7.4-10.4) fL Neut % (Auto) 63.0 (46-82) % Lymph % (Auto) 25.1 (13-37) % Rush % (Auto) 8.0 (4-12) % Eos % (Auto) 3 (1.0-5.0) % Baso % (Auto) 1 (0-2) % Neut # (Auto) 7.8 (1.6-8.3) # Lymph # (Auto) 3.1 (0.6-5.0) # Rush # (Auto) 1.0 (0.0-1.3) # Eos # (Auto) 0.4 (0.0-0.8) # Baso # (Auto) 0.1 (0.0-0.2) # D-Dimer, Quantitative 1.15 H (0.0-0.59) mg/LFEU Sodium 143 (135-145) mmol/L Potassium 3.3 L (3.5-5.3) mmol/L Chloride 107 (100-110) mmol/L Carbon Dioxide 26 (21-32) mmol/L BUN 12 (7-18) mg/dL Creatinine 0.9 (0.55-1.02) mg/dL Est Cr Clr Drug Dosing TNP Estimated GFR (MDRD) > 60 (>60) BUN/Creatinine Ratio 13.3 (9-20) Glucose 63 L (80-116) mg/dL Lactic Acid (0.4-2.2) mmol/L Calcium 9.3 (8.6-10.2) mg/dL Total Bilirubin 0.3 (0.1-1.3) mg/dL AST 42 H D (5-25) IU/L ALT 31 D (12-36) U/L Alkaline Phosphatase 124 H (56-112) IU/L Troponin I (<0.017-0.056) ng/mL Total Protein 8.1 H (6.0-8.0) g/dL Albumin 3.1 L (3.5-5.2) g/dL Globulin 5.0 g/dL Albumin/Globulin Ratio 0.6 18 / Range/Units 13:05 13:05 WBC (4.5-12.0) X10-3/uL RBC (3.23-5.20) x10(6)uL Hgb (11.5-15.5) g/dL Hct (30.0-51.3) % MCV (80-96) fL MCH (27.7-33.6) pg MCHC (32.2-35.4) g/dL RDW (11.5-15.5) % Plt Count (125-369) X10(3)uL MPV (7.4-10.4) fL Neut % (Auto) (46-82) % Lymph % (Auto) (13-37) % Rush % (Auto) (4-12) % Eos % (Auto) (1.0-5.0) % Baso % (Auto) (0-2) % Neut # (Auto) (1.6-8.3) # Lymph # (Auto) (0.6-5.0) # Rush # (Auto) (0.0-1.3) # Eos # (Auto) (0.0-0.8) # Baso # (Auto) (0.0-0.2) # D-Dimer, Quantitative (0.0-0.59) mg/LFEU Sodium (135-145) mmol/L Potassium (3.5-5.3) mmol/L Chloride (100-110) mmol/L Carbon Dioxide (21-32) mmol/L BUN (7-18) mg/dL Creatinine (0.55-1.02) mg/dL Est Cr Clr Drug Dosing Estimated GFR (MDRD) (>60) BUN/Creatinine Ratio (9-20) Glucose (80-116) mg/dL Lactic Acid 1.5 (0.4-2.2) mmol/L Calcium (8.6-10.2) mg/dL Total Bilirubin (0.1-1.3) mg/dL AST (5-25) IU/L ALT (12-36) U/L Alkaline Phosphatase (56-112) IU/L Troponin I 0.033 (<0.017-0.056) ng/mL Total Protein (6.0-8.0) g/dL Albumin (3.5-5.2) g/dL Globulin g/dL Albumin/Globulin Ratio Meds: Medications Generic Name Dose Route Start Last Admin Trade Name Freq PRN Reason Stop Dose Admin Sodium Chloride 10 ml 12/04/17 14:47 Saline Flush FLUSH ASDIRECTED PRN Keep Vein Open Discontinued Medications Generic Name Dose Route Start Last Admin Trade Name Freq PRN Reason Stop Dose Admin Amoxicillin/Clavulanate Potassium 1 tab 12/04/17 17:13 Augmentin 500 Mg\125 Mg PO 12/04/17 17:14 ONETIME ONE Iopamidol 100 ml 12/04/17 16:02 Isovue-370 (76%) IV 12/04/17 16:03 ONETIME ONE - Radiology Interpretation Free Text/Narrative:: CT Chest w/ IV contrast: No PE, no pneumonia, evidence for fibrosis (per Dr. Kimbrough) Departure - Departure Time of Disposition: 17:20 Disposition: Home, Self-Care 01 Condition: Good Clinical Impression: Chest wall pain Sinusitis Qualifiers: Sinusitis location: other Chronicity: unspecified Qualified Code(s): J32.9 - Chronic sinusitis, unspecified Prescriptions: Amoxicillin/Potassium Clav [Augmentin 500-125 Tablet] 1 each PO TID #30 tablet Instructions: Sinusitis, Adult, Chest Wall Pain, [id number] Referrals: Aldo Garland MD [Primary Care Provider] - Forms: ED Department Discharge Additional Instructions: OTC Ibuprofen as needed. Take Augmentin as prescribed. Follow up with your doctor in 2 days. - My Orders Last 24 Hours: My Active Orders 12/04/17 12:55 Blood Culture x2 Reflex Set [OM.PC] Urgent 12/04/17 13:05 CULTURE BLOOD [BC] Stat 12/04/17 13:10 CULTURE BLOOD [BC] Stat 12/04/17 14:46 Chest w Cont [CT] Stat 12/04/17 14:47 Sodium Chloride 0.9% [Saline Flush] 10 ml FLUSH ASDIRECTED PRN Saline Lock Insert [OM.PC] Routine - Assessment/Plan Last 24 Hours: My Active Orders 12/04/17 12:55 Blood Culture x2 Reflex Set [OM.PC] Urgent 12/04/17 13:05 CULTURE BLOOD [BC] Stat 12/04/17 13:10 CULTURE BLOOD [BC] Stat 12/04/17 14:46 Chest w Cont [CT] Stat 12/04/17 14:47 Sodium Chloride 0.9% [Saline Flush] 10 ml FLUSH ASDIRECTED PRN Saline Lock Insert [OM.PC] Routine
[2017-12-04] MEDS ORDERED: Sodium Chloride 0.9% 10 ML Syringe FLUSH PRN (14:47)
--- NOTE | 2017-12-04 14:49 | CR ---
INDICATION: Chest pain. CHEST: A single frontal view of the chest was obtained. Evidence of exogenous obesity is noted. The heart is enlarged. The aorta is tortuous. Overlying EKG leads are noted. Upper lung field pulmonary vasculature is prominent, suggesting the possibility of CHF. A definite consolidating pneumonia or definite effusion was not identified. IMPRESSION: 1. ASHD, cardiomegaly, and probable CHF. No definite lung edema. 2. Exogenous obesity. MTDD
[2017-12-04] MEDS ORDERED: Iopamidol 755 Mg/ML 100 ML Bottle IV ONE (16:02)
[2017-12-04] MEDS ORDERED: Amoxicillin/Clavulanate K 500-125 MG Tab PO ONE (17:13)
--- NOTE | 2017-12-04 18:34 | CT ---
INDICATION: Chest pain/shortness of breath, question pulmonary embolus. COMPUTERIZED TOMOGRAPHY ANGIOGRAPHY OF THE CHEST WITH CONTRAST FOR PULMONARY ARTERIES: Spiral 1.25 mm axial sections were obtained through the chest with sagittal and coronal reconstructions, utilizing 89 mL Isovue 370 at 3 mL/second , 12/04/2017. Findings were compared with 09/14/2015. Contrast enhancement of the pulmonary arteries was somewhat improved, compared with the previous study of 2016. Total exam DLP = 810.05 mGy-cm. A low density lesion is noted in the right lobe of the thyroid, visualized incompletely. Ultrasound may be helpful for further evaluation, as felt to be clinically necessary. No mediastinal masses were identified. A definite active infiltrate or effusion was not identified with some very minimal scarring suggested in the periphery of the lungs. Upper abdomen visualized was unremarkable. Evidence of exogenous obesity is noted, which limits imaging detail. The heart is prominent and is likely at the upper limits of normal in size or slightly enlarged. No pericardial effusion was seen. No evidence of pulmonary embolus could be identified. IMPRESSION: 1. No evidence of pulmonary emboli. 2. Minimal fibrotic appearing changes. 3. Exogenous obesity. 4. Prominent heart at the upper limits of normal in size or slightly enlarged - correlate clinically. Report was called to Dr. Alvarez at 1645 hours on 12/04/2017. [facility]
[2017-12-04 22:32] VITALS: BP 156/76
== END 2017-12-04 17:40 | disposition home or self-care (01) ==
LOC: FB.ED 12:33
DX: R07.89 Other chest pain (principal); J32.9 Chronic sinusitis, unspecified; I11.0 Hypertensive heart disease with heart failure; I50.9 Heart failure, unspecified; E78.00 Pure hypercholesterolemia, unspecified; J44.9 Chronic obstructive pulmonary disease, unspecified; Z86.73 Personal history of transient ischemic attack (TIA), and cerebral infarction without residual deficits; E11.9 Type 2 diabetes mellitus without complications; F41.9 Anxiety disorder, unspecified; Z88.6 Allergy status to analgesic agent; Z88.5 Allergy status to narcotic agent; Z88.8 Allergy status to other drugs, medicaments and biological substances; Z79.899 Other long term (current) drug therapy
CPT/HCPCS: 36415; 71045; 71260; 80053; 83605; 84484; 85025; 85379; 87040; 99285; A9270; Q9967

== ENCOUNTER 2020-07-06 09:16 | Emergency (ER) | payer BC, OTHER ==
[2020-07-06] MEDS ORDERED: Sodium Chloride 0.9% 10 ML Syringe FLUSH PRN (10:01)
[2020-07-06] MEDS ORDERED: Ketorolac 30 MG/ML SDV IVPUSH ONE (10:02)
--- NOTE | 2020-07-06 10:10 | EDM.PDOC ---
ED HPI GENERAL MEDICAL PROBLEM - General Chief Complaint: Back Pain or Injury Stated Complaint: UPPER R SIDE PAIN Time Seen by Provider: 07/06/20 10:05 Source of Information: Reports: Patient History Limitations: Reports: No Limitations - History of Present Illness INITIAL COMMENTS - FREE TEXT/NARRATIVE: Presents with intermittent right "side" pain x 2 weeks, that has been constant x 3 days. Pain is localized to right lower ribs and radiates to right mid back. Worse with inspiration and movement. Denies injury, cough, abdominal pain, or N/V. No relief with Tylenol, Ibuprofen, and Trent. Had similar symptoms @3 years ago due to spontaneous rib fracture. Duration: Week(s): (2) Location: Reports: Chest, Back Quality: Reports: Sharp Severity: Moderate Right Upper Thoracic Pain Score (Numeric/FACES): 7 - Related Data Allergies Allergy/AdvReac Type Severity Reaction Status Date / Time cephalexin monohydrate Allergy Difficulty Verified 07/06/20 10:05 [From Keflex] Breathing ciprofloxacin [From Cipro] Allergy Hives Verified 07/06/20 10:05 ciprofloxacin HCl Allergy Hives Verified 07/06/20 10:05 [From Cipro] codeine Allergy Hives Verified 07/06/20 10:05 diclofenac [From Cataflam] Allergy Hives Verified 07/06/20 10:05 oxycodone Allergy Other Verified 07/06/20 10:05 prednisone Allergy Swelling Verified 07/06/20 10:05 sulfamethoxazole Allergy Other Verified 07/06/20 10:05 [From Bactrim] trimethoprim [From Bactrim] Allergy Other Verified 07/06/20 10:05 Home Meds: Home Meds Hydrochlorothiazide 25 mg PO DAILY 01/04/14 [History] lisinopriL [Prinivil] 20 mg PO DAILY 01/04/14 [History] Albuterol [Proventil HFA] 2 puff INH Q4H PRN 06/19/14 [History] Fluticasone Propionate [Flonase] 2 sprays NASBOTH DAILY PRN 06/19/14 [History] Formoterol/Mometasone [Dulera 100 MCG/5 MCG] 2 puff INH BID 06/19/14 [History] Insulin Aspart [NovoLOG] 60 units SQ TIDAC 06/19/14 [History] Insulin Detemir [Levemir] 80 units SQ ACBREAKFAST 02/19/15 [History] Docusate Sodium [Colace] 100 mg PO BID 04/29/15 [History] SUMAtriptan [Imitrex] 50 mg PO ASDIRECTED PRN 04/29/15 [History] Nitroglycerin [Nitrostat] 0.4 mg SL ASDIRECTED PRN 09/15/16 [History] Amphetamine/Dextroamphetamine [Adderall] 25 mg PO DAILY 09/18/16 [History] Venlafaxine [Effexor] 25 mg PO DAILY 09/18/16 [History] Acetaminophen/HYDROcodone [Trent 325-5 MG] 1 - 2 tab PO Q6H PRN #12 tab 07/06/20 [Rx] Baclofen 10 mg PO TID PRN #30 tablet 07/06/20 [Rx] Insulin Detemir [Levemir] 20 units SUBCNJ BEDTIME PRN 07/06/20 [History] Meloxicam 7.5 mg PO DAILY #14 tablet 07/06/20 [Rx] Past Medical History HEENT History: Reports: Allergic Rhinitis Cardiovascular History: Reports: Heart Failure, High Cholesterol, Hypertension Respiratory History: Reports: Asthma, COPD, Sleep Apnea Other Gastrointestinal History: constipation [employer] 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: , Other (See Below) Other [employer]ACHINE HELPER History: Uterine tumor removal and Uterine cysts removal Musculoskeletal History: Reports: Arthritis Neurological History: Reports: TIA Psychiatric History: Reports: Anxiety, Depression, Psych Hospitalization(s), Suicide Attempt, Suicidal Ideation Endocrine/Metabolic History: Reports: Diabetes, Type II Oncologic (Cancer) History: Reports: Uterine Other Oncologic History: small tumor removed Dermatologic History: Reports: Psoriasis, Other (See Below) Other Dermatologic History: on lower legs - Infectious Disease History Infectious Disease History: Reports: Chicken Pox - Past Surgical History HEENT Surgical History: Reports: None GI Surgical History: Reports: Colonoscopy Endocrine Surgical History: Reports: None Musculoskeletal Surgical History: Reports: None Other Musculoskeletal Surgeries/Procedures:: vertebral fusion 2015 Oncologic Surgical History: Reports: None Dermatological Surgical History: Reports: None Social & Family History - Family History Family Medical History: No Pertinent Family History HEENT: Reports: Glaucoma Cardiac: Reports: Heart Failure, Hypertension, MS Respiratory: Reports: Asthma, COPD : Reports: Renal Disease/Insufficiency OBGYN: Reports: Fibroids Musculoskeletal: Reports: Arthritis, Back pain, Chronic, Fibromyalgia, Gout Other Neurological Family History: stroke Endocrine/Metabolic: Reports: Diabetes, type II Hematologic: Reports: Anemia Dermatologic: Reports: Other (See Below) Other Dermatologic Family History: open ulcers Oncologic: Reports: Breast, Renal, Uterine - Tobacco Use Tobacco Use Status *Q: Never Tobacco User Second Hand Smoke Exposure: No - Caffeine Use Caffeine Use: Reports: Coffee - Recreational Drug Use Recreational Drug Use: No ED ROS GENERAL - Review of Systems Review Of Systems: Comprehensive ROS is negative, except as noted in HPI. ED EXAM, GENERAL - Physical Exam Exam: See Below Exam Limited By: No Limitations General Appearance: Alert, WD/WN, No Apparent Distress Throat/Mouth: No Airway Compromise Head: Atraumatic, Normocephalic Neck: Full Range of Motion Respiratory/Chest: No Respiratory Distress, Lungs Clear, Normal Breath Sounds, Other (Right lower anterior and lateral chest wall tenderness) Cardiovascular: Regular Rate, Rhythm, No Gallop, No Murmur GI/Abdominal: Soft, Non-Tender, No Distention Back Exam: Full Range of Motion Extremities: Normal Range of Motion Neurological: Alert, Normal Cognition Psychiatric: Normal Affect, Normal Mood Skin Exam: Warm, Dry, Intact, Normal Color, No Rash Course - Vital Signs Last Recorded V/S: Last Vital Signs Temp 36.6 C 07/06/20 09:37 Pulse 84 07/06/20 09:37 Resp 18 07/06/20 09:37 BP 138/66 07/06/20 09:37 Pulse Ox 94 L 07/06/20 09:37 - Orders/Labs/Meds Orders: Active Orders 24 hr Category Date Time Status Ang Chest [CT] Stat Exams 07/06/20 10:55 Stop Req Ang Chest [CT] Stat Exams 07/06/20 10:55 Taken UA W/MICROSCOPIC [URIN] Stat Lab 07/06/20 10:01 Ordered Sodium Chloride 0.9% [Normal Saline] 1,000 ml Med 07/06/20 12:15 Active IV ASDIRECTED Sodium Chloride 0.9% [Saline Flush] Med 07/06/20 10:01 Active 10 ml FLUSH ASDIRECTED PRN Saline Lock Insert [OM.PC] Routine Oth 07/06/20 10:01 Ordered Medication Orders Sodium Chloride (Normal Saline) 1,000 mls @ 50 mls/hr IV ASDIRECTED MANJIT Sodium Chloride (Saline Flush) 10 ml FLUSH ASDIRECTED PRN PRN Reason: Keep Vein Open Labs: Laboratory Tests 07/06/20 07/06/20 07/06/20 Range/Units 10:20 10:20 10:20 WBC 12.3 H (3.0-10.3) x10-3/uL RBC 4.90 (3.60-5.20) x10(6)uL Hgb 12.8 (11.4-15.5) g/dL Hct 41.0 (34.2-48.2) % MCV 83.7 (76.7-100.5) fL MCH 26.2 (23.9-33.9) pg MCHC 31.4 L (31.9-34.8) g/dL RDW 15.3 (12.3-16.5) % Plt Count 245 (151-488) x10(3)uL MPV 8.0 (7.1-12.4) fL Neut % (Auto) 73.2 (30.8-76.2) % Lymph % (Auto) 16.3 L (18.4-52.1) % [place] % (Auto) 5.9 (4.4-15.7) % Eos % (Auto) 3.6 (0.6-8.1) % Baso % (Auto) 1.0 (0.2-1.5) % Neut # (Auto) 9.0 H (1.5-6.3) x10-3/uL Lymph # (Auto) 2.0 (1.0-4.4) x10-3/uL [place] # (Auto) 0.7 (0.3-1.0) x10-3/uL Eos # (Auto) 0.4 (0.0-0.8) x10-3/uL Baso # (Auto) 0.1 (0.0-0.1) x10-3/uL PT (9.0-11.1) sec INR (1.00-1.24) APTT (24.4-33.2) SECONDS D-Dimer, Quantitative 3.13 H (0.0-0.59) mg/LFEU Sodium 139 (135-145) mmol/L Potassium 4.5 D (3.5-5.3) mmol/L Chloride 102 D (100-110) mmol/L Carbon Dioxide 28 (21-32) mmol/L BUN 14 (7-18) mg/dL Creatinine 0.8 (0.55-1.02) mg/dL Est Cr Clr Drug Dosing 71.50 mL/min Estimated GFR (MDRD) > 60 (>60) BUN/Creatinine Ratio 17.5 (9-20) Glucose 179 H D (80-116) mg/dL Calcium 8.8 (8.6-10.2) mg/dL Total Bilirubin 0.6 (0.1-1.3) mg/dL AST 27 H D (5-25) IU/L ALT 19 D (12-36) U/L Alkaline Phosphatase 109 (56-112) IU/L Troponin I (4.0-60.3) pg/mL Total Protein 7.2 (6.0-8.0) g/dL Albumin 2.9 L (3.5-5.2) g/dL Globulin 4.3 g/dL Albumin/Globulin Ratio 0.7 07/06/20 07/06/20 Range/Units 10:20 10:20 WBC (3.0-10.3) x10-3/uL RBC (3.60-5.20) x10(6)uL Hgb (11.4-15.5) g/dL Hct (34.2-48.2) % MCV (76.7-100.5) fL MCH (23.9-33.9) pg MCHC (31.9-34.8) g/dL RDW (12.3-16.5) % Plt Count (151-488) x10(3)uL MPV (7.1-12.4) fL Neut % (Auto) (30.8-76.2) % Lymph % (Auto) (18.4-52.1) % [place] % (Auto) (4.4-15.7) % Eos % (Auto) (0.6-8.1) % Baso % (Auto) (0.2-1.5) % Neut # (Auto) (1.5-6.3) x10-3/uL Lymph # (Auto) (1.0-4.4) x10-3/uL [place] # (Auto) (0.3-1.0) x10-3/uL Eos # (Auto) (0.0-0.8) x10-3/uL Baso # (Auto) (0.0-0.1) x10-3/uL PT 10.1 (9.0-11.1) sec INR 0.94 L (1.00-1.24) APTT 22.2 L (24.4-33.2) SECONDS D-Dimer, Quantitative (0.0-0.59) mg/LFEU Sodium (135-145) mmol/L Potassium (3.5-5.3) mmol/L Chloride (100-110) mmol/L Carbon Dioxide (21-32) mmol/L BUN (7-18) mg/dL Creatinine (0.55-1.02) mg/dL Est Cr Clr Drug Dosing mL/min Estimated GFR (MDRD) (>60) BUN/Creatinine Ratio (9-20) Glucose (80-116) mg/dL Calcium (8.6-10.2) mg/dL Total Bilirubin (0.1-1.3) mg/dL AST (5-25) IU/L ALT (12-36) U/L Alkaline Phosphatase (56-112) IU/L Troponin I 35.0 (4.0-60.3) pg/mL Total Protein (6.0-8.0) g/dL Albumin (3.5-5.2) g/dL Globulin g/dL Albumin/Globulin Ratio Meds: Medications Generic Name Dose Route Start Last Admin Trade Name Freq PRN Reason Stop Dose Admin Sodium Chloride 1,000 mls @ 50 mls/hr 07/06/20 12:15 Normal Saline IV ASDIRECTED MANJIT Sodium Chloride 10 ml 07/06/20 10:01 Saline Flush FLUSH ASDIRECTED PRN Keep Vein Open Discontinued Medications Generic Name Dose Route Start Last Admin Trade Name Freq PRN Reason Stop Dose Admin Iopamidol 100 ml 07/06/20 12:16 07/06/20 12:19 Isovue-370 (76%) IV 07/06/20 12:17 95 ml ONETIME ONE Administration Ketorolac Tromethamine 30 mg 07/06/20 10:02 07/06/20 11:22 Toradol IVPUSH 07/06/20 10:03 Not Given ONETIME ONE Ketorolac Tromethamine 60 mg 07/06/20 11:08 07/06/20 11:19 Toradol IM 07/06/20 11:09 60 mg ONETIME ONE Administration - Radiology Interpretation Free Text/Narrative:: CXR: No acute process. (Dr. Kimbrough) CTA chest: No pulmonary embolus seen. Possible mild interstitial edema, fibrosis RLL. (verbal rpt from Dr. Kimbrough) - Re-Assessments/Exams Free Text/Narrative Re-Assessment/Exam: 07/06/20 13:05 Pain improved after Toradol 60mg IM. Departure - Departure Time of Disposition: 13:05 Disposition: Home, Self-Care 01 Condition: Good Clinical Impression: Right-sided chest wall pain - Discharge Information *PRESCRIPTION DRUG MONITORING PROGRAM REVIEWED*: Yes *COPY OF PRESCRIPTION DRUG MONITORING REPORT IN PATIENT NAOMY: No Prescriptions: Baclofen 10 mg PO TID PRN #30 tablet PRN Reason: Muscle Spasm Meloxicam 7.5 mg PO DAILY #14 tablet Acetaminophen/HYDROcodone [Trent 325-5 MG] 1 - 2 tab PO Q6H PRN #12 tab PRN Reason: Pain Instructions: Chest Wall Pain, Clid-cg-Xryy Forms: ED Department Discharge Additional Instructions: Fill the prescriptions for Trent, Meloxicam, and Baclofen at [facility] and take as directed. Do not take Tylenol or Ibuprofen in addition. Follow up with your primary physician in 2-3 days. Return to the ER if symptoms worsen. Sepsis Event Note (ED) - Evaluation Sepsis Screening Result: No Definite Risk - Focused Exam Vital Signs: Vital Signs Temp Pulse Resp BP Pulse Ox 07/06/20 09:37 36.6 C 84 18 138/66 94 L - My Orders Last 24 Hours: My Active Orders 07/06/20 10:01 UA W/MICROSCOPIC [URIN] Stat Sodium Chloride 0.9% [Saline Flush] 10 ml FLUSH ASDIRECTED PRN Saline Lock Insert [OM.PC] Routine 07/06/20 10:55 Ang Chest [CT] Stat Ang Chest [CT] Stat 07/06/20 12:15 Sodium Chloride 0.9% [Normal Saline] 1,000 ml IV ASDIRECTED - Assessment/Plan Last 24 Hours: My Active Orders 07/06/20 10:01 UA W/MICROSCOPIC [URIN] Stat Sodium Chloride 0.9% [Saline Flush] 10 ml FLUSH ASDIRECTED PRN Saline Lock Insert [OM.PC] Routine 07/06/20 10:55 Ang Chest [CT] Stat Ang Chest [CT] Stat 07/06/20 12:15 Sodium Chloride 0.9% [Normal Saline] 1,000 ml IV ASDIRECTED
[2020-07-06] MEDS ORDERED: Ketorolac 60 MG/2 ML SDV IM ONE (11:08)
--- NOTE | 2020-07-06 11:25 | CR ---
INDICATION: Right chest wall pain. CHEST TWO VIEWS: PA and lateral views of the chest were obtained 07/06/20 and compared with 12/04/17 and 07/24/17. The heart size is difficult to evaluate, but appeared prominent. The aorta is somewhat tortuous with calcification in the arch. Flowing hyperostotic changes are noted in the spine which may be on the basis of DISH. The lungs appear to be somewhat hyperaerated with prominent AP diameter and some flattening of diaphragm leaves on the lateral view raising question of COPD, but should be correlated clinically. Pulmonary markings are similar to the previous examinations without a definite active infiltrate or effusion identified. Exogenous obesity is again noted. IMPRESSION: No acute process. MTDD
[2020-07-06] MEDS ORDERED: Sodium Chloride 0.9% 1,000 ML IV SCH (12:15)
[2020-07-06] MEDS ORDERED: Iopamidol 755 Mg/ML 100 ML Bottle IV ONE (12:16)
--- NOTE | 2020-07-06 12:38 | PCM.SN.2 ---
- Free Text/Narrative Note: [facility] Date: 07/06/2020 Time: 1055 to 1204 DX: Elevated D-Dimer, Super Morbid Obesity and Poor Vascular Access RX: Obtain Peripheral Venous Access for CT Pulmonary Scan Procedure: Placement of Peripheral Venous Catheter I was called by the ED physician to attempt placement of a venous access catheter after failed attempts [6]. I attempted times 5 with 4 positive blood returns but either unable to advance the catheter or the vein ruptured with advancement or fluid flush. The operations supervisor 2nd shift states the catheter must be either a 20 Ga. or bigger. The ultrasound was busy through this time period. I found a very superficial vein on her left lateral very upper arm and prepped it with 2 alcohol wipes allowing it to dry. I then sprayed the insertion site with a "numbing freeze" spray which helped her a lot. Using a BD Insyte Autoguard BC Winged 20 GA. X 1.16 IN Catheter, I inserted and advanced the catheter X 1 attempt without apparent complications. I flushed it easily with 15 ml's of normal saline and placed an Op-Site dressing to the site. Over all, she tolerated al these attempts better than expected. Ganesh Melvin CRNA, [place]
--- NOTE | 2020-07-06 13:18 | CT ---
INDICATION: Right chest pain, question PE. COMPUTERIZED TOMOGRAPHY ANGIOGRAPHY OF THE CHEST WITH CONTRAST: Spiral 1.25 mm axial sections were obtained through the chest with 95 cc Isovue-370 at 3 cc per second with sagittal and coronal reconstructions and axial reconstructions 07/06/20 and compared with 12/04/17. Total exam DLP was 1048.91 mGy-cm. At the lower pole of the right lobe of the thyroid there is what appears to be a heterogeneously dense mostly hypodense lesion seen previously, but not well identified on the previous examination. Ultrasound may be helpful for further evaluation as felt to be clinically necessary. The mediastinum showed no evidence of mass lesions. The heart appears slightly enlarged compared with the previous examination and overall does appear to be enlarged. No pericardial effusion was seen. Upper abdomen included on this study revealed no gross abnormalities. Detail is somewhat limited by the patient's large size. No consolidating infiltrate or effusion was identified. However, there does appear to be interstitial lung edema which may be on the basis of CHF and interstitial lung edema and should be correlated clinically. There is a focal area of increased density at the right lower lobe posteromedially at the lung base which could represent an area of focal infiltrate or possibly scarring which may have been present in part on the previous study. Contrast enhancement of the pulmonary arteries is less than ideal. Detail is also limited due to the patient's large size. No definite pulmonary emboli could be identified. IMPRESSION: 1. No definite pulmonary emboli. Study somewhat limited by patient's size and degree of contrast enhancement of the pulmonary arteries. 2. Question the possibility of mild CHF and interstitial lung edema. 3. Exogenous obesity. Report was called to Dr. Alvarez at [address] [facility]
[2020-07-06 13:45] VITALS: BP 132/62; PULSE 65
== END 2020-07-06 13:30 | disposition home or self-care (01) ==
LOC: FB.ED 09:16
DX: R07.89 Other chest pain (principal); I11.0 Hypertensive heart disease with heart failure; I50.9 Heart failure, unspecified; J44.9 Chronic obstructive pulmonary disease, unspecified; E11.9 Type 2 diabetes mellitus without complications; Z88.1 Allergy status to other antibiotic agents; Z88.5 Allergy status to narcotic agent; Z88.8 Allergy status to other drugs, medicaments and biological substances; Z88.2 Allergy status to sulfonamides; Z79.899 Other long term (current) drug therapy; Z79.4 Long term (current) use of insulin
CPT/HCPCS: 36415; 71046; 71275; 80053; 84484; 85025; 85379; 85610; 85730; 96372; 99285; J1885; J7030; Q9967; 36410; 99284

== ENCOUNTER 2021-04-29 14:03 | Emergency (ER) | payer OTHER ==
[2021-04-29 14:37] VITALS: BP 178/87; PULSE 73
[2021-04-29] MEDS ORDERED: Metoclopramide 10 MG/2 ML SDV IVPUSH ONE (14:58)
[2021-04-29] MEDS ORDERED: Sodium Chloride 0.9% 1,000 ML IV ONE (14:58)
--- NOTE | 2021-04-29 15:07 | EDM.PDOC ---
ED HPI GENERAL MEDICAL PROBLEM - General Chief Complaint: Abdominal Pain Stated Complaint: ABD PAIN Time Seen by Provider: 04/29/21 14:30 Source of Information: Reports: Patient History Limitations: Reports: No Limitations - History of Present Illness INITIAL COMMENTS - FREE TEXT/NARRATIVE: c/o abd pain x 2 wk continuous pain at both flanks, across lower back, greater on left works at [employer], not missed work, left work early at 1p today for clinic appointment saw Dr Garland 1w ago and told WBC 13 and inflammatory marker 16.3, begun on cipro and metronidazole, however not better some nausea, no vomiting at bfast bowl for bfast BM this AM with no change in pain has had temp 99 to 99.9 at home, no chills/sweats h/o diverticulitis once in past, in 2007, hospitalized at [facility] in [facility], had liver failure and kidney at 1% function SH: lives alone last labs here 10m ago with wbc 12.3, hgb 12.6, BUN/creat 14/0.8 with GFR >60 Left Upper Abdomen Pain Score (Numeric/FACES): 4 Right Upper Abdomen Pain Score (Numeric/FACES): 8 - Related Data Allergies Allergy/AdvReac Type Severity Reaction Status Date / Time cephalexin monohydrate Allergy Difficulty Verified 04/29/21 14:30 [From Keflex] Breathing ciprofloxacin [From Cipro] Allergy Hives Verified 04/29/21 14:30 ciprofloxacin HCl Allergy Hives Verified 04/29/21 14:30 [From Cipro] codeine Allergy Hives Verified 04/29/21 14:30 diclofenac [From Cataflam] Allergy Hives Verified 04/29/21 14:30 oxycodone Allergy Other Verified 04/29/21 14:30 prednisone Allergy Swelling Verified 04/29/21 14:30 sulfamethoxazole Allergy Other Verified 04/29/21 14:30 [From Bactrim] trimethoprim [From Bactrim] Allergy Other Verified 04/29/21 14:30 Home Meds: Home Meds Hydrochlorothiazide 25 mg PO DAILY 01/04/14 [History] lisinopriL [Prinivil] 20 mg PO DAILY 01/04/14 [History] Albuterol [Proventil HFA] 2 puff INH Q4H PRN 06/19/14 [History] Fluticasone Propionate [Flonase] 2 sprays NASBOTH DAILY PRN 06/19/14 [History] Formoterol/Mometasone [Dulera 100 MCG/5 MCG] 2 puff INH BID 06/19/14 [History] Insulin Aspart [NovoLOG] 60 units SQ TIDAC 06/19/14 [History] Insulin Detemir [Levemir] 80 units SQ ACBREAKFAST 02/19/15 [History] Docusate Sodium [Colace] 100 mg PO BID 04/29/15 [History] SUMAtriptan [Imitrex] 50 mg PO ASDIRECTED PRN 04/29/15 [History] Nitroglycerin [Nitrostat] 0.4 mg SL ASDIRECTED PRN 09/15/16 [History] Amphetamine/Dextroamphetamine [Adderall] 25 mg PO DAILY 09/18/16 [History] Venlafaxine [Effexor] 25 mg PO DAILY 09/18/16 [History] Acetaminophen/HYDROcodone [[place] 325-5 MG] 1 - 2 tab PO Q6H PRN #12 tab 07/06/20 [Rx] Baclofen 10 mg PO TID PRN #30 tablet 07/06/20 [Rx] Insulin Detemir [Levemir] 20 units SUBCNJ BEDTIME PRN 07/06/20 [History] Meloxicam 7.5 mg PO DAILY #14 tablet 07/06/20 [Rx] Ciprofloxacin HCl [Cipro] 500 mg PO BID #14 tablet 04/29/21 [Rx] Metoclopramide HCl 10 mg PO Q6H PRN #16 tablet 04/29/21 [Rx] metroNIDAZOLE [Metronidazole] 500 mg PO TID #21 tablet 04/29/21 [Rx] traMADol HCl [Tramadol HCl] 50 mg PO Q6H PRN #12 tablet 04/29/21 [Rx] Past Medical History HEENT History: Reports: Allergic Rhinitis Cardiovascular History: Reports: Heart Failure, High Cholesterol, Hypertension Respiratory History: Reports: Asthma, COPD, Sleep Apnea Gastrointestinal History: Reports: Diverticulosis Other Gastrointestinal History: constipation [employer] SOC[employer] WORKER History: Reports: , Other (See Below) Other [employer] SOC[employer] WORKER History: Uterine tumor removal and Uterine cysts removal Musculoskeletal History: Reports: Arthritis Neurological History: Reports: TIA Psychiatric History: Reports: Anxiety, Depression, Psych Hospitalization(s), Suicide Attempt, Suicidal Ideation Endocrine/Metabolic History: Reports: Diabetes, Type II Oncologic (Cancer) History: Reports: Uterine Other Oncologic History: small tumor removed Dermatologic History: Reports: Psoriasis, Other (See Below) Other Dermatologic History: on lower legs - Infectious Disease History Infectious Disease History: Reports: Chicken Pox - Past Surgical History HEENT Surgical History: Reports: None GI Surgical History: Reports: Colonoscopy Endocrine Surgical History: Reports: None Musculoskeletal Surgical History: Reports: None Other Musculoskeletal Surgeries/Procedures:: vertebral fusion 2014 Oncologic Surgical History: Reports: None Dermatological Surgical History: Reports: None Social & Family History - Family History Family Medical History: No Pertinent Family History HEENT: Reports: Glaucoma Cardiac: Reports: Heart Failure, Hypertension, MS Respiratory: Reports: Asthma, COPD : Reports: Renal Disease/Insufficiency OBGYN: Reports: Fibroids Musculoskeletal: Reports: Arthritis, Back pain, Chronic, Fibromyalgia, Gout Other Neurological Family History: stroke Endocrine/Metabolic: Reports: Diabetes, type II Hematologic: Reports: Anemia Dermatologic: Reports: Other (See Below) Other Dermatologic Family History: open ulcers Oncologic: Reports: Breast, Renal, Uterine - Tobacco Use Tobacco Use Status *Q: Former Tobacco User Used Tobacco, but Quit: Yes Month/Year Tobacco Last Used: 2017 - Caffeine Use Caffeine Use: Reports: Soda - Recreational Drug Use Recreational Drug Use: No ED ROS GENERAL - Review of Systems Review Of Systems: See Below Constitutional: Denies: Fever, Chills, Malaise HEENT: Reports: No Symptoms Respiratory: Reports: No Symptoms Cardiovascular: Reports: No Symptoms Endocrine: Reports: No Symptoms GI/Abdominal: Reports: No Symptoms : Reports: No Symptoms Musculoskeletal: Reports: No Symptoms Skin: Reports: No Symptoms Neurological: Reports: No Symptoms. Denies: Headache Psychiatric: Reports: No Symptoms Hematologic/Lymphatic: Reports: No Symptoms Immunologic: Reports: No Symptoms ED EXAM, GI/ABD - Physical Exam Exam: See Below Exam Limited By: No Limitations General Appearance: Alert, WD/WN, No Apparent Distress Ears: Normal External Exam, Normal Canal, Hearing Grossly Normal Nose: Normal Inspection, Normal Mucosa, No Blood Throat/Mouth: Normal Inspection, Normal Lips, Normal Teeth, Normal Gums, Normal Oropharynx, Normal Voice, No Airway Compromise Head: Atraumatic, Normocephalic Neck: Normal Inspection, Supple, Non-Tender, Full Range of Motion Respiratory/Chest: No Respiratory Distress, Lungs Clear, Normal Breath Sounds, Chest Non-Tender Cardiovascular: Regular Rate, Rhythm, No Murmur, Other (trace pretib edema b/l, symmetric). No: No Gallop GI/Abdominal Exam: Other (obese, mild tender flanks and across lower abd, no guard/rebound, BS present and dec'd, no CVAT) Back Exam: Normal Inspection, Full Range of Motion, NT Extremities: Normal Inspection, Normal Range of Motion, Non-Tender, No Pedal Edema Neurological: Alert, Oriented, CN II-XII Intact, Normal Cognition, No Gladys r/Sensory Deficits Psychiatric: Normal Affect, Normal Mood Skin Exam: Warm, Dry, Intact, Normal Color, No Rash Lymphatic: No Adenopathy Course - Vital Signs Last Recorded V/S: Last Vital Signs Temp 37.2 C 04/29/21 14:03 Pulse 73 04/29/21 14:03 Resp 18 04/29/21 14:03 BP 178/87 H 04/29/21 14:03 Pulse Ox 98 04/29/21 14:03 - Orders/Labs/Meds Orders: Active Orders 24 hr Category Date Time Status Abdomen Pelvis w Cont [CT] Stat Exams 04/29/21 14:57 Ordered Labs: Laboratory Tests 04/29/21 04/29/21 04/29/21 Range/Units 15:05 15:05 15:05 WBC 10.2 (3.0-10.3) x10-3/uL RBC 4.97 (3.60-5.20) x10(6)uL Hgb 13.0 (11.4-15.5) g/dL Hct 40.8 (34.2-48.2) % MCV 82.0 (76.7-100.5) fL MCH 26.1 (23.9-33.9) pg MCHC 31.9 (31.9-34.8) g/dL RDW 15.9 (12.3-16.5) % Plt Count 284 (151-488) x10(3)uL MPV 7.6 (7.1-12.4) fL Neut % (Auto) 68.9 (30.8-76.2) % Lymph % (Auto) 19.9 (18.4-52.1) % [place] % (Auto) 6.6 (4.4-15.7) % Eos % (Auto) 4.0 (0.6-8.1) % Baso % (Auto) 0.6 (0.2-1.5) % Neut # (Auto) 7.1 H (1.5-6.3) x10-3/uL Lymph # (Auto) 2.0 (1.0-4.4) x10-3/uL [place] # (Auto) 0.7 (0.3-1.0) x10-3/uL Eos # (Auto) 0.4 (0.0-0.8) x10-3/uL Baso # (Auto) 0.1 (0.0-0.1) x10-3/uL Sodium 140 (135-145) mmol/L Potassium 4.0 (3.5-5.3) mmol/L Chloride 105 (100-110) mmol/L Carbon Dioxide 26 (21-32) mmol/L BUN 10 (7-18) mg/dL Creatinine 1.0 (0.55-1.02) mg/dL Est Cr Clr Drug Dosing 56.53 mL/min Estimated GFR (MDRD) 57 L (>60) BUN/Creatinine Ratio 10.0 (9-20) Glucose 95 D (80-116) mg/dL Calcium 9.3 (8.6-10.2) mg/dL Total Bilirubin 0.5 (0.1-1.3) mg/dL AST 29 H (5-25) IU/L ALT 35 D (12-36) U/L Alkaline Phosphatase 119 H (56-112) IU/L C-Reactive Protein 2.2 H (0.5-0.9) mg/dL Total Protein 7.7 (6.0-8.0) g/dL Albumin 3.1 L (3.5-5.2) g/dL Globulin 4.6 g/dL Albumin/Globulin Ratio 0.7 Lipase 95 (73-393) U/L Urine Color (YELLOW) Urine Appearance (CLEAR) Urine pH (5.0-6.5) Ur Specific [place] (1.010-1.025) Urine Protein (NEGATIVE) mg/dL Urine Glucose (UA) (NORMAL) mg/dL Urine Ketones (NEGATIVE) mg/dL Urine Occult Blood (NEGATIVE) Urine Nitrite (NEGATIVE) Urine Bilirubin (NEGATIVE) Urine Urobilinogen (NEGATIVE) mg/dL Ur Leukocyte Esterase (NEGATIVE) Urine RBC (0-5) Urine WBC (0-5) Ur Squamous Epith Cells (NS,R,O) Urine Bacteria (NS) 04/29/21 Range/Units 15:57 WBC (3.0-10.3) x10-3/uL RBC (3.60-5.20) x10(6)uL Hgb (11.4-15.5) g/dL Hct (34.2-48.2) % MCV (76.7-100.5) fL MCH (23.9-33.9) pg MCHC (31.9-34.8) g/dL RDW (12.3-16.5) % Plt Count (151-488) x10(3)uL MPV (7.1-12.4) fL Neut % (Auto) (30.8-76.2) % Lymph % (Auto) (18.4-52.1) % [place] % (Auto) (4.4-15.7) % Eos % (Auto) (0.6-8.1) % Baso % (Auto) (0.2-1.5) % Neut # (Auto) (1.5-6.3) x10-3/uL Lymph # (Auto) (1.0-4.4) x10-3/uL [place] # (Auto) (0.3-1.0) x10-3/uL Eos # (Auto) (0.0-0.8) x10-3/uL Baso # (Auto) (0.0-0.1) x10-3/uL Sodium (135-145) mmol/L Potassium (3.5-5.3) mmol/L Chloride (100-110) mmol/L Carbon Dioxide (21-32) mmol/L BUN (7-18) mg/dL Creatinine (0.55-1.02) mg/dL Est Cr Clr Drug Dosing mL/min Estimated GFR (MDRD) (>60) BUN/Creatinine Ratio (9-20) Glucose (80-116) mg/dL Calcium (8.6-10.2) mg/dL Total Bilirubin (0.1-1.3) mg/dL AST (5-25) IU/L ALT (12-36) U/L Alkaline Phosphatase (56-112) IU/L C-Reactive Protein (0.5-0.9) mg/dL Total Protein (6.0-8.0) g/dL Albumin (3.5-5.2) g/dL Globulin g/dL Albumin/Globulin Ratio Lipase (73-393) U/L Urine Color Yellow (YELLOW) Urine Appearance Clear (CLEAR) Urine pH 5.0 (5.0-6.5) Ur Specific [place] 1.025 (1.010-1.025) Urine Protein Negative (NEGATIVE) mg/dL Urine Glucose (UA) Normal (NORMAL) mg/dL Urine Ketones Negative (NEGATIVE) mg/dL Urine Occult Blood Negative (NEGATIVE) Urine Nitrite Negative (NEGATIVE) Urine Bilirubin Negative (NEGATIVE) Urine Urobilinogen Normal (NEGATIVE) mg/dL Ur Leukocyte Esterase Small H (NEGATIVE) Urine RBC 0-5 (0-5) Urine WBC 0-5 (0-5) Ur Squamous Epith Cells Occasional (NS,R,O) Urine Bacteria Few H (NS) Meds: Medications Discontinued Medications Generic Name Dose Route Start Last Admin Trade Name Freq PRN Reason Stop Dose Admin Sodium Chloride 1,000 mls @ 999 mls/hr 04/29/21 14:58 04/29/21 16:03 Normal Saline IV 04/29/21 15:58 999 mls/hr .BOLUS ONE Administration Iopamidol 150 ml 04/29/21 15:21 04/29/21 15:46 Iopamidol 755 Mg/Ml 150 Ml Bottle IV 04/29/21 15:22 150 ml ONETIME ONE Administration Metoclopramide HCl 10 mg 04/29/21 14:58 04/29/21 16:10 Metoclopramide 10 Mg/2 Ml Sdv IVPUSH 04/29/21 14:59 10 mg ONETIME ONE Administration - Re-Assessments/Exams Free Text/Narrative Re-Assessment/Exam: 04/29/21 17:33 CT abd/pelvis with IV contrast neg as per Dr Kimbrough, no absces s/colitis/diverticulitis, diverticulosis noted WBC was 13 one week, now corrected to normal CRP was 16.1 by pt report one week ago, now corrected to 2.2 indicating residual inflammation although infection appears to be clearing up nicely pt took Zofran 8 mg today and did not think it helped, PCP office told her to use scopolamine patch but there are $15 and pt cannot afford them, pt thought the Reglan worked well and is agreeable to taking Reglan QID for 2-3 days as preventive with Zofran ODT as backup pt does not recall whether she has been on tramadol in the past seems to be healing, will continue antbxs x 1 more week and control sxs (pain and nausea) as noted Departure - Departure Time of Disposition: 17:26 Disposition: Home, Self-Care 01 Condition: Good Clinical Impression: Acute diverticulitis - Discharge Information *PRESCRIPTION DRUG MONITORING PROGRAM REVIEWED*: Not Applicable *COPY OF PRESCRIPTION DRUG MONITORING REPORT IN PATIENT NAOMY: Not Applicable Prescriptions: Ciprofloxacin HCl [Cipro] 500 mg PO BID #14 tablet Metoclopramide HCl 10 mg PO Q6H PRN #16 tablet PRN Reason: Nausea metroNIDAZOLE [Metronidazole] 500 mg PO TID #21 tablet traMADol HCl [Tramadol HCl] 50 mg PO Q6H PRN #12 tablet PRN Reason: Pain Instructions: Diverticulitis Referrals: Aldo Garland MD [Primary Care Provider] - Forms: ED Department Discharge Additional Instructions: Your blood tests are improving nicely. The CT scan does not show active infection. To complete the healing process, continue ciprofloxacin 500 mg 1 tab 2 times a day for 7 days. Continue the metronidazole 500 mg 1 tab 3 times a day for 7 days. For nausea, take metoclopramide 10 mg 1 tab 4 times a day for 2 days, then every 6 hours as needed. For nausea, take ondansetron ODT 4 mg 1 tab under the tongue every 6 hours as needed (use as backup to the metoclopramide). For pain, take acetaminophen 500 mg 2 tabs 4 times a day for 3 days, longer if needed. For pain, take ibuprofen 200 mg 3 tabs 4 times a day for 3 days, longer if needed. Take at the same tame as the acetaminophen. For breakthrough pain, take tramadol 50 mg 1 tab every [address] Garland in 3-4 days for further recommendations. Sepsis Event Note (ED) - Evaluation Sepsis Screening Result: No Definite Risk - Focused Exam Vital Signs: Vital Signs Temp Pulse Resp BP Pulse Ox 04/29/21 14:03 37.2 C 73 18 178/87 H 98 - My Orders Last 24 Hours: My Active Orders 04/29/21 14:57 Abdomen Pelvis w Cont [CT] Stat - Assessment/Plan Last 24 Hours: My Active Orders 04/29/21 14:57 Abdomen Pelvis w Cont [CT] Stat
[2021-04-29] MEDS ORDERED: Iopamidol 755 MG/ML 150 ML Bottle IV ONE (15:21)
--- NOTE | 2021-04-29 17:47 | CT ---
INDICATION: Flank pain x two weeks, history of diverticulitis. CT ABDOMEN AND PELVIS WITH CONTRAST: Spiral 3.75 mm axial sections were obtained through the abdomen and pelvis with 150 cc [id number] at 2.5 cc/second with with sagittal and coronal reconstructions, 04/29/21, and compared with 07/24/17. TOTAL EXAM DLP: 3079.73 mGy/cm. A definite active infiltrate or effusion was not identified in the lower lung amador and pleural spaces visualized - some minimal linear density is noted at the right lung base, partly seen previously, likely fibrotic in nature. Slightly low-density of the liver suggests fatty liver. The liver was otherwise unremarkable. No gallstones were demonstrated. The adrenal glands were unremarkable. Minimal renal cortical scarring is again noted. The spleen and pancreas are essentially unremarkable. No retroperitoneal mass was seen. Stable, mild retroperitoneal lymphadenopathy is noted, which is nonspecific. Sigmoid diverticulosis is noted without evidence of diverticulitis. The appendix appeared normal, visualized on image 47 through 54 of the coronal images. No evidence of free air, bowel obstruction, inguinal or ventral hernia, intraperitoneal mass lesions, organomegaly or free fluid collections were identified. Stable L5-S1 fusion is again noted. Bridging hyperostotic changes are noted in the thoracolumbar spine with a dextroconcave scoliosis at the thoracolumbar spine of moderate degree. IMPRESSION: 1. Somewhat fatty liver. 2. Minimal ASD with a few calcifications in the arteries. 3. Minimal fibrosis at the lung base on the right. 4. Minimal renal cortical scarring. 5. Sigmoid diverticulosis without evidence of diverticulitis. 6. Stable L5-S1 fusion. Report was called to Dr. Lyn at 1633 hours, 04/29/21. [facility]
== END 2021-04-29 18:00 | disposition home or self-care (01) ==
LOC: FB.ED 14:03
DX: K57.32 Diverticulitis of large intestine without perforation or abscess without bleeding (principal); I11.0 Hypertensive heart disease with heart failure; I50.9 Heart failure, unspecified; J44.9 Chronic obstructive pulmonary disease, unspecified; E11.9 Type 2 diabetes mellitus without complications; Z86.73 Personal history of transient ischemic attack (TIA), and cerebral infarction without residual deficits; Z88.1 Allergy status to other antibiotic agents; Z88.5 Allergy status to narcotic agent; Z88.8 Allergy status to other drugs, medicaments and biological substances; Z79.899 Other long term (current) drug therapy; Z79.4 Long term (current) use of insulin; Z87.891 Personal history of nicotine dependence
CPT/HCPCS: 36415; 74177; 80053; 81001; 83690; 85025; 86140; 96374; 99284; J2765; J7030; Q9967; 36410

== ENCOUNTER 2021-07-05 17:13 | Emergency (ER) | payer OTHER ==
[2021-07-05 17:35] VITALS: BP 175/73; PULSE 72
[2021-07-05] MEDS ORDERED: Acetaminophen 500 MG Tab PO ONE (17:35)
[2021-07-05] MEDS ORDERED: Aluminum Hydroxide/Magnesium Hydroxide Susp 30 ML Cup PO STA (18:59)
[2021-07-05] MEDS ORDERED: Ketorolac 30 MG/ML SDV IVPUSH ONE (18:59)
[2021-07-05] MEDS ORDERED: Sodium Chloride 0.9% 10 ML Syringe FLUSH PRN (19:10)
== END 2021-07-05 19:45 | disposition home or self-care (01) ==
LOC: FB.ED 17:13
DX: E11.649 Type 2 diabetes mellitus with hypoglycemia without coma (principal); I11.0 Hypertensive heart disease with heart failure; I50.9 Heart failure, unspecified; E78.00 Pure hypercholesterolemia, unspecified; J44.9 Chronic obstructive pulmonary disease, unspecified; Z86.73 Personal history of transient ischemic attack (TIA), and cerebral infarction without residual deficits; Z88.1 Allergy status to other antibiotic agents; Z88.5 Allergy status to narcotic agent; Z88.8 Allergy status to other drugs, medicaments and biological substances; Z79.899 Other long term (current) drug therapy
CPT/HCPCS: 36415; 82947; 84484; 93005; 96374; 99285-25; A9270-GY; J1885

== ENCOUNTER 2021-12-23 12:57 | Emergency (ER) | payer OTHER ==
[2021-12-23] MEDS ORDERED: Sodium Chloride 0.9% 10 ML Syringe FLUSH PRN (13:34)
[2021-12-23] MEDS ORDERED: Ketorolac 30 MG/ML SDV IVPUSH STA (13:35)
[2021-12-23] MEDS ORDERED: Morphine 4 MG/ML VIAL IVPUSH STA (13:35)
[2021-12-23] MEDS ORDERED: Atropine/Diphenoxylate 0.025-2.5 MG Tab PO STA (13:37)
[2021-12-23] MEDS ORDERED: Sodium Chloride 0.9% 1,000 ML IV SCH (13:45)
[2021-12-23 14:11] LABS: ESTIMATED GFR 53 mL/min (>60)
[2021-12-23] MEDS ORDERED: Iopamidol 755 MG/ML 150 ML Bottle IV ONE (14:45)
[2021-12-23] MEDS ORDERED: Prochlorperazine 10 MG in Sodium Chloride 0.9% 50 ML IV STA (16:50)
[2021-12-23 17:26] VITALS: BP 139/71; PULSE 88
== END 2021-12-23 16:40 | disposition home or self-care (01) ==
LOC: FB.ED 12:57
DX: U07.1 COVID-19 (principal); K52.9 Noninfective gastroenteritis and colitis, unspecified; N28.89 Other specified disorders of kidney and ureter; I11.0 Hypertensive heart disease with heart failure; I50.9 Heart failure, unspecified; J45.909 Unspecified asthma, uncomplicated; E11.9 Type 2 diabetes mellitus without complications; E66.9 Obesity, unspecified; Z68.30 Body mass index [BMI] 30.0-30.9, adult; Z88.1 Allergy status to other antibiotic agents; Z88.5 Allergy status to narcotic agent; Z88.2 Allergy status to sulfonamides; Z79.899 Other long term (current) drug therapy; Z79.4 Long term (current) use of insulin
CPT/HCPCS: 36415; 71045; 74177; 80053; 81001; 82150; 83690; 85025; 96361; 96374; 96375; 99284-25; A9270-GY; J1885; J2270; J7030; Q9967

== ENCOUNTER 2022-07-31 16:23 | Emergency (ER) | payer OTHER ==
[2022-07-31] MEDS ORDERED: Acetaminophen 500 MG Tab PO ONE (16:53)
[2022-07-31] MEDS ORDERED: Ibuprofen 800 MG Tab PO ONE (16:53)
[2022-07-31] MEDS ORDERED: amLODIPine 10 MG Tab PO STA (16:53)
[2022-07-31 17:11] VITALS: BP 178/80; PULSE 89
[2022-07-31 17:32] LABS: ESTIMATED GFR 75 mL/min (>60)
[2022-07-31] MEDS ORDERED: Sodium Chloride 0.9% 10 ML Syringe FLUSH PRN ×2 (17:54→17:58)
[2022-07-31] MEDS ORDERED: Labetalol 20 MG/4 ML Syringe IVPUSH ONE ×2 (17:58→20:48)
[2022-07-31] MEDS ORDERED: hydrALAZINE 20 MG/ML SDV IVPUSH STA (19:16)
[2022-07-31] MEDS ORDERED: Aspirin 81 MG Tab.Chew PO STA (20:20)
[2022-07-31] MEDS ORDERED: Morphine 4 MG/ML VIAL IVPUSH ONE (20:22)
[2022-07-31] MEDS ORDERED: Ondansetron 4 MG/2 ML SDV IVPUSH ONE (20:24)
[2022-07-31] MEDS ORDERED: LORazepam 2 MG/ML SDV IVPUSH STA (20:48)
== END 2022-07-31 22:05 ==
LOC: FB.ED 16:23
DX: I24.9 Acute ischemic heart disease, unspecified (principal); I16.9 Hypertensive crisis, unspecified; E11.9 Type 2 diabetes mellitus without complications; I11.0 Hypertensive heart disease with heart failure; I50.9 Heart failure, unspecified; J44.9 Chronic obstructive pulmonary disease, unspecified; M19.90 Unspecified osteoarthritis, unspecified site; E66.9 Obesity, unspecified; Z68.43 Body mass index [BMI] 50.0-59.9, adult; Z88.1 Allergy status to other antibiotic agents; Z88.5 Allergy status to narcotic agent; Z88.8 Allergy status to other drugs, medicaments and biological substances; Z88.2 Allergy status to sulfonamides; Z79.899 Other long term (current) drug therapy; Z79.4 Long term (current) use of insulin
CPT/HCPCS: 36415; 71045; 80053; 83880; 84443; 84484; 85025; 85610; 85730; 93005; 93010; 96374; 96375; 99285; 99285-25; A9270-GY; J0360; J2060; J2270; J2405; J3490

== ENCOUNTER 2023-01-31 10:21 | Inpatient (IN) | payer OTHER ==
[2023-01-31] MEDS: Sodium Chloride 0.9% 10 ML Syringe FLUSH PRN ×3 (10:38→20:32)
[2023-01-31 11:06] LABS: BASOPHILS ABSOLUTE AUTO 0.1 x10-3/uL (0.0-0.1); BASOPHILS PERCENT AUTO 0.7 % (0.2-1.5); EOSINOPHILS PERCENT AUTO 0.2 % (0.6-8.1); HEMATOCRIT 40.8 % (34.2-48.2); HEMOGLOBIN 13.2 g/dL (11.4-15.5); LYMPHOCYTES ABSOLUTE AUTO 1.6 x10-3/uL (1.0-4.4); LYMPHOCYTES PERCENT AUTO 11.9 % (18.4-52.1); MEAN CORPUSCULAR HEMOGLOBIN 26.7 pg (23.9-33.9); MEAN CORPUSCULAR HGB CONC 32.5 g/dL (31.9-34.8); MEAN CORPUSCULAR VOLUME 82.1 fL (76.7-100.5); MEAN PLATELET VOLUME 8.1 fL (7.1-12.4); MONOCYTES ABSOLUTE AUTO 0.9 x10-3/uL (0.3-1.0); NEUTROPHILS ABSOLUTE AUTO 10.5 x10-3/uL (1.5-6.3); NEUTROPHILS PERCENT AUTO 80.2 % (30.8-76.2); PLATELET COUNT,PLT 297 x10(3)uL (151-488); RED BLOOD CELL COUNT 4.97 x10(6)uL (3.60-5.20); RED CELL DISTRIBUTION WIDTH 15.2 % (12.3-16.5); WHITE BLOOD CELL COUNT,WBC 13.1 x10-3/uL (3.0-10.3)
[2023-01-31 11:07] LABS: BLOOD UREA NITROGEN,BUN 11 mg/dL (7-18); CALCIUM 8.9 mg/dL (8.6-10.2); CARBON DIOXIDE,CO2 25 mmol/L (21-32); CHLORIDE,CL 107 mmol/L (100-110); CREATININE 1.1 mg/dL (0.55-1.02); ESTIMATED GFR 59 mL/min (>60); GLUCOSE RANDOM 147 mg/dL (80-116); POTASSIUM,K 3.5 mmol/L (3.5-5.3); SODIUM,NA 143 mmol/L (135-145)
[2023-01-31 11:13] LABS: A/G RATIO 0.8; ALANINE AMINOTRANSFERASE,ALT 21 U/L (12-36); ALBUMIN 3.3 g/dL (3.5-5.2); ALKALINE PHOSPHATASE 152 IU/L (56-112); ASPARTATE AMNIOTRANSFERASE,AST 10 IU/L (5-25); BILIRUBIN TOTAL 0.3 mg/dL (0.1-1.3); MAGNESIUM 1.7 mg/dL (1.8-2.5); PROTEIN TOTAL,TP 7.6 g/dL (6.0-8.0)
[2023-01-31] MEDS ORDERED: Albuterol/Ipratropium 3.0-0.5 MG/3 ML Neb Soln NEB ONE (11:38)
[2023-01-31] MEDS ORDERED: methylPREDNISolone Sodium Succinate 125 MG/2 ML SDV IVPUSH ONE (11:38)
[2023-01-31 11:45] LABS: BASE EXCESS VENOUS,POC 1 mmol/L (-2 - 3+); PCO2 VENOUS,POC 38 mmHg (41-51); PH VENOUS,POC 7.42 pH Units (7.32-7.43)
[2023-01-31] MEDS ORDERED: Iopamidol 755 Mg/ML 100 ML Bottle IV SCH (14:00)
[2023-01-31] MEDS ORDERED: Polyethylene Glycol 3350 Powder 17 GM Packet PO PRN (15:50)
[2023-01-31] MEDS ORDERED: Acetaminophen 325 MG Tab PO PRN (15:50)
[2023-01-31] MEDS ORDERED: Albuterol 0.083% 2.5 MG/3 ML Neb Soln NEB PRN (15:50)
[2023-01-31] MEDS ORDERED: Glucagon,Human Recombinant 1 MG Vial IM PRN (15:57)
[2023-01-31] MEDS ORDERED: 50% Dextrose in Water 50 ML Syringe IVPUSH PRN (15:57)
[2023-01-31] MEDS ORDERED: Cyclobenzaprine 10 MG Tab PO PRN (16:50)
[2023-01-31] MEDS: Apixaban 5 MG Tab PO SCH (16:56)
[2023-01-31] MEDS ORDERED: Magnesium Sulfate/Water 50 ML IV ONE (17:00)
[2023-01-31] MEDS ORDERED: Insulin Lispro 100 Unit/ML 3 ML KwikPen SUBCUT ONE ×2 (17:13→20:24)
[2023-01-31] MEDS: traMADol 50 MG Tab PO PRN (17:17)
[2023-01-31] MEDS: Insulin Lispro 100 Unit/ML 3 ML KwikPen SUBCUT SCH ×2 (17:51→17:52)
[2023-01-31] MEDS: Ketorolac 15 MG/ML SDV IVPUSH PRN (20:05)
[2023-01-31] MEDS: Carvedilol 12.5 MG Tab PO SCH (20:17)
[2023-01-31] MEDS: Budesonide 0.5 MG/2 ML Neb Susp INH SCH (20:18)
[2023-02-01] MEDS: traMADol 50 MG Tab PO PRN (05:16)
[2023-02-01] MEDS: Ondansetron 4 MG Tab.DIS PO PRN (05:19)
[2023-02-01 06:42] LABS: BASOPHILS ABSOLUTE AUTO 0.1 x10-3/uL (0.0-0.1); BASOPHILS PERCENT AUTO 0.4 % (0.2-1.5); HEMATOCRIT 38.7 % (34.2-48.2); HEMOGLOBIN 12.7 g/dL (11.4-15.5); LYMPHOCYTES ABSOLUTE AUTO 1.1 x10-3/uL (1.0-4.4); LYMPHOCYTES PERCENT AUTO 8.8 % (18.4-52.1); MEAN CORPUSCULAR HEMOGLOBIN 26.9 pg (23.9-33.9); MEAN CORPUSCULAR HGB CONC 32.8 g/dL (31.9-34.8); MEAN CORPUSCULAR VOLUME 82.1 fL (76.7-100.5); MEAN PLATELET VOLUME 7.8 fL (7.1-12.4); MONOCYTES ABSOLUTE AUTO 0.7 x10-3/uL (0.3-1.0); MONOCYTES PERCENT AUTO 5.6 % (4.4-15.7); NEUTROPHILS ABSOLUTE AUTO 10.4 x10-3/uL (1.5-6.3); NEUTROPHILS PERCENT AUTO 85.2 % (30.8-76.2); PLATELET COUNT,PLT 285 x10(3)uL (151-488); RED BLOOD CELL COUNT 4.72 x10(6)uL (3.60-5.20); WHITE BLOOD CELL COUNT,WBC 12.2 x10-3/uL (3.0-10.3)
[2023-02-01 06:46] LABS: BLOOD UREA NITROGEN,BUN 13 mg/dL (7-18); BUN/CREATININE RATIO 14.4 (9-20); CALCIUM 8.8 mg/dL (8.6-10.2); CARBON DIOXIDE,CO2 27 mmol/L (21-32); CHLORIDE,CL 104 mmol/L (100-110); CREATININE 0.9 mg/dL (0.55-1.02); EST CRCL DRUG DOSING (CG) 59.55 mL/min; ESTIMATED GFR 75 mL/min (>60); GLUCOSE RANDOM 240 mg/dL (80-116); MAGNESIUM 2.2 mg/dL (1.8-2.5); POTASSIUM,K 4.1 mmol/L (3.5-5.3); SODIUM,NA 140 mmol/L (135-145)
[2023-02-01] MEDS: Ketorolac 15 MG/ML SDV IVPUSH PRN ×2 (07:46→23:05)
[2023-02-01] MEDS: Sodium Chloride 0.9% 10 ML Syringe FLUSH PRN ×2 (07:46→23:04)
[2023-02-01] MEDS: Insulin Lispro 100 Unit/ML 3 ML KwikPen SUBCUT SCH ×6 (07:50→17:20)
[2023-02-01] MEDS: predniSONE 20 MG Tab PO SCH (07:55)
[2023-02-01] MEDS ORDERED: Insulin Glargine,Human Rec. Analog 100 Units/ML 3 ML Pen SUBCUT ONE (08:00)
[2023-02-01] MEDS: Insulin Glargine,Human Rec. Analog 100 Units/ML 3 ML Pen SUBCUT SCH (08:02)
[2023-02-01] MEDS: Apixaban 5 MG Tab PO SCH ×2 (08:05→20:37)
[2023-02-01] MEDS: Carvedilol 12.5 MG Tab PO SCH ×2 (08:06→20:36)
[2023-02-01] MEDS: Pantoprazole 40 MG Tab.CR PO SCH (08:06)
[2023-02-01] MEDS: Tiotropium BR/Olodaterol HCL 4 GM Inhalation Spray 2.5mcg/1 dose; 10 doses INH SCH (08:06)
[2023-02-01] MEDS: amLODIPine 10 MG Tab PO SCH (08:06)
[2023-02-01] MEDS: Budesonide 0.5 MG/2 ML Neb Susp INH SCH ×2 (09:40→20:37)
[2023-02-01] MEDS: Acetaminophen/HYDROcodone 325-5 MG Tab PO PRN ×2 (10:42→17:24)
[2023-02-01] MEDS: Albuterol/Ipratropium 3.0-0.5 MG/3 ML Neb Soln NEB SCH ×4 (10:43→20:37)
[2023-02-02] MEDS: Albuterol/Ipratropium 3.0-0.5 MG/3 ML Neb Soln NEB SCH ×2 (06:33→11:04)
[2023-02-02 07:12] LABS: BASOPHILS ABSOLUTE AUTO 0.1 x10-3/uL (0.0-0.1); BASOPHILS PERCENT AUTO 0.8 % (0.2-1.5); EOSINOPHILS PERCENT AUTO 0.1 % (0.6-8.1); HEMATOCRIT 38.5 % (34.2-48.2); HEMOGLOBIN 12.7 g/dL (11.4-15.5); LYMPHOCYTES ABSOLUTE AUTO 2.4 x10-3/uL (1.0-4.4); LYMPHOCYTES PERCENT AUTO 19.4 % (18.4-52.1); MEAN CORPUSCULAR HEMOGLOBIN 27.2 pg (23.9-33.9); MEAN CORPUSCULAR VOLUME 82.4 fL (76.7-100.5); MEAN PLATELET VOLUME 7.9 fL (7.1-12.4); MONOCYTES ABSOLUTE AUTO 0.9 x10-3/uL (0.3-1.0); MONOCYTES PERCENT AUTO 7.6 % (4.4-15.7); NEUTROPHILS PERCENT AUTO 72.1 % (30.8-76.2); PLATELET COUNT,PLT 268 x10(3)uL (151-488); RED BLOOD CELL COUNT 4.68 x10(6)uL (3.60-5.20); RED CELL DISTRIBUTION WIDTH 15.2 % (12.3-16.5); WHITE BLOOD CELL COUNT,WBC 12.5 x10-3/uL (3.0-10.3)
[2023-02-02 07:17] LABS: BLOOD UREA NITROGEN,BUN 21 mg/dL (7-18); BUN/CREATININE RATIO 23.3 (9-20); CALCIUM 8.7 mg/dL (8.6-10.2); CARBON DIOXIDE,CO2 28 mmol/L (21-32); CHLORIDE,CL 105 mmol/L (100-110); CREATININE 0.9 mg/dL (0.55-1.02); EST CRCL DRUG DOSING (CG) 59.55 mL/min; ESTIMATED GFR 75 mL/min (>60); GLUCOSE RANDOM 180 mg/dL (80-116); POTASSIUM,K 3.9 mmol/L (3.5-5.3); SODIUM,NA 140 mmol/L (135-145)
[2023-02-02] MEDS: Insulin Lispro 100 Unit/ML 3 ML KwikPen SUBCUT SCH ×4 (08:10→12:09)
[2023-02-02] MEDS: Insulin Glargine,Human Rec. Analog 100 Units/ML 3 ML Pen SUBCUT SCH (08:17)
[2023-02-02] MEDS: Apixaban 5 MG Tab PO SCH (08:20)
[2023-02-02] MEDS: predniSONE 20 MG Tab PO SCH (08:20)
[2023-02-02] MEDS: Carvedilol 12.5 MG Tab PO SCH (08:20)
[2023-02-02] MEDS: amLODIPine 10 MG Tab PO SCH (08:21)
[2023-02-02] MEDS: Pantoprazole 40 MG Tab.CR PO SCH (08:21)
[2023-02-02] MEDS: Ondansetron 4 MG Tab.DIS PO PRN (08:25)
[2023-02-02] MEDS: Budesonide 0.5 MG/2 ML Neb Susp INH SCH (09:07)
[2023-02-02] MEDS: Tiotropium BR/Olodaterol HCL 4 GM Inhalation Spray 2.5mcg/1 dose; 10 doses INH SCH (09:08)
[2023-02-02] MEDS: Acetaminophen/HYDROcodone 325-5 MG Tab PO PRN ×2 (09:10→14:29)
[2023-02-02 11:08] VITALS: BP 160/70; PULSE 57
== END 2023-02-02 14:39 | disposition home or self-care (01) | DRG 176 ==
LOC: FB.ED 10:21 → FB.MS 15:05
PROVIDERS: ADMIT Family Medicine; ATTEND Family Medicine
DX: I26.94 Multiple subsegmental thrombotic pulmonary emboli without acute cor pulmonale (principal); Z68.43 Body mass index [BMI] 50.0-59.9, adult; J44.1 Chronic obstructive pulmonary disease with (acute) exacerbation; F10.10 Alcohol abuse, uncomplicated; I26.99 Other pulmonary embolism without acute cor pulmonale; G43.909 Migraine, unspecified, not intractable, without status migrainosus; I11.0 Hypertensive heart disease with heart failure; I50.9 Heart failure, unspecified; F41.9 Anxiety disorder, unspecified; F32.A Depression, unspecified; F98.8 Other specified behavioral and emotional disorders with onset usually occurring in childhood and adolescence; J44.9 Chronic obstructive pulmonary disease, unspecified; G47.30 Sleep apnea, unspecified; K59.00 Constipation, unspecified; G89.29 Other chronic pain; M54.9 Dorsalgia, unspecified; N18.9 Chronic kidney disease, unspecified; I12.9 Hypertensive chronic kidney disease with stage 1 through stage 4 chronic kidney disease, or unspecified chronic kidney disease; E11.22 Type 2 diabetes mellitus with diabetic chronic kidney disease; E11.65 Type 2 diabetes mellitus with hyperglycemia; F32.9 Major depressive disorder, single episode, unspecified; E83.42 Hypomagnesemia; E66.9 Obesity, unspecified; E11.9 Type 2 diabetes mellitus without complications; Z79.01 Long term (current) use of anticoagulants; E78.00 Pure hypercholesterolemia, unspecified; K21.9 Gastro-esophageal reflux disease without esophagitis; Z88.5 Allergy status to narcotic agent; Z88.8 Allergy status to other drugs, medicaments and biological substances; Z88.2 Allergy status to sulfonamides; Z79.4 Long term (current) use of insulin; Z90.49 Acquired absence of other specified parts of digestive tract; Z98.890 Other specified postprocedural states; Z79.899 Other long term (current) drug therapy; Z86.73 Personal history of transient ischemic attack (TIA), and cerebral infarction without residual deficits; Z87.891 Personal history of nicotine dependence
CPT/HCPCS: 36415; 71045; 71275; 80048; 80053; 83735; 83880; 84484; 85025; 85379; 93005; 93010; 94640; 96374; 97165-GO; 99222; 99232; 99239; 99285; 99285-25; A9270-GY; J1815; J1815-GY; J1885; J2930; J3475; J3490; J7512; J7620; Q0162; Q9967

== ENCOUNTER 2024-05-06 12:14 | Emergency (ER) | payer OTHER ==
[2024-05-06] MEDS ORDERED: Acetaminophen/HYDROcodone 325-5 MG Tab PO ONE (12:15)
[2024-05-06 12:27] VITALS: BP 169/87; PULSE 58
[2024-05-06 13:17] LABS: BASOPHILS ABSOLUTE AUTO 0.1 x10-3/uL (0.0-0.1); BASOPHILS PERCENT AUTO 1.1 % (0.2-1.5); EOSINOPHILS ABSOLUTE AUTO 0.3 x10-3/uL (0.0-0.8); HEMATOCRIT 41.9 % (34.2-48.2); HEMOGLOBIN 13.5 g/dL (11.4-15.5); LYMPHOCYTES ABSOLUTE AUTO 2.6 x10-3/uL (1.0-4.4); LYMPHOCYTES PERCENT AUTO 24.6 % (18.4-52.1); MEAN CORPUSCULAR HEMOGLOBIN 27.5 pg (23.9-33.9); MEAN CORPUSCULAR HGB CONC 32.3 g/dL (31.9-34.8); MEAN CORPUSCULAR VOLUME 84.9 fL (76.7-100.5); MEAN PLATELET VOLUME 7.9 fL (7.1-12.4); MONOCYTES ABSOLUTE AUTO 0.7 x10-3/uL (0.3-1.0); MONOCYTES PERCENT AUTO 6.4 % (4.4-15.7); NEUTROPHILS ABSOLUTE AUTO 6.8 x10-3/uL (1.5-6.3); NEUTROPHILS PERCENT AUTO 64.9 % (30.8-76.2); PLATELET COUNT,PLT 286 x10(3)uL (151-488); RED BLOOD CELL COUNT 4.93 x10(6)uL (3.60-5.20); RED CELL DISTRIBUTION WIDTH 15.5 % (12.3-16.5); WHITE BLOOD CELL COUNT,WBC 10.4 x10-3/uL (3.0-10.3)
[2024-05-06 13:19] LABS: BLOOD UREA NITROGEN,BUN 13 mg/dL (7-18); CALCIUM 9.6 mg/dL (8.6-10.2); CARBON DIOXIDE,CO2 29 mmol/L (21-32); CHLORIDE,CL 111 mmol/L (100-110); ESTIMATED GFR 65 mL/min (>60); GLUCOSE RANDOM 110 mg/dL (80-116); POTASSIUM,K 4.2 mmol/L (3.5-5.3); SODIUM,NA 148 mmol/L (135-145)
[2024-05-06 13:25] LABS: A/G RATIO 0.8; ALANINE AMINOTRANSFERASE,ALT 20 U/L (12-36); ALBUMIN 3.3 g/dL (3.5-5.2); ALKALINE PHOSPHATASE 119 IU/L (56-112); ASPARTATE AMNIOTRANSFERASE,AST 14 IU/L (5-25); BILIRUBIN TOTAL 0.3 mg/dL (0.1-1.3); PROTEIN TOTAL,TP 7.5 g/dL (6.0-8.0)
[2024-05-06 13:27] LABS: C-REACTIVE PROTEIN 0.68 mg/dL (<0.50); TROPONIN I 18.6 pg/mL (4.0-60.3)
[2024-05-06] MEDS: Iopamidol 755 Mg/ML 100 ML Bottle IV ONE (16:37)
== END 2024-05-06 18:50 | disposition home or self-care (01) ==
LOC: FB.ED 12:14
DX: I26.99 Other pulmonary embolism without acute cor pulmonale (principal); E11.9 Type 2 diabetes mellitus without complications; I11.0 Hypertensive heart disease with heart failure; I50.9 Heart failure, unspecified; J44.89 Other specified chronic obstructive pulmonary disease; E66.9 Obesity, unspecified; Z90.49 Acquired absence of other specified parts of digestive tract; Z79.4 Long term (current) use of insulin; Z79.899 Other long term (current) drug therapy; Z88.5 Allergy status to narcotic agent; Z88.8 Allergy status to other drugs, medicaments and biological substances; Z88.2 Allergy status to sulfonamides
CPT/HCPCS: 36415; 71046; 71275; 80053; 84484; 85025; 85379; 86140; 93005; 99285; A9270; Q9967

== ENCOUNTER 2024-12-11 13:21 | Emergency (ER) | payer BC ==
[2024-12-11 14:52] LABS: BLOOD UREA NITROGEN,BUN 19 mg/dL (7-18); CARBON DIOXIDE,CO2 28 mmol/L (21-32); CHLORIDE,CL 109 mmol/L (100-110); CREATININE 1.3 mg/dL (0.55-1.02); EST CRCL DRUG DOSING (CG) 40.24 mL/min; ESTIMATED GFR 47 mL/min (>60); GLUCOSE RANDOM 71 mg/dL (80-116); POTASSIUM,K 3.9 mmol/L (3.5-5.3); SODIUM,NA 144 mmol/L (135-145)
[2024-12-11 14:58] LABS: A/G RATIO 0.7; ALANINE AMINOTRANSFERASE,ALT 20 U/L (12-36); ASPARTATE AMNIOTRANSFERASE,AST 16 IU/L (5-25); BILIRUBIN TOTAL 0.4 mg/dL (0.1-1.3); PROTEIN TOTAL,TP 6.8 g/dL (6.0-8.0)
[2024-12-11 16:46] VITALS: BP 114/61; PULSE 53
== END 2024-12-11 16:43 | disposition home or self-care (01) ==
LOC: FB.ED 13:21
DX: I95.9 Hypotension, unspecified (principal); N17.9 Acute kidney failure, unspecified; E86.0 Dehydration; I11.0 Hypertensive heart disease with heart failure; I50.9 Heart failure, unspecified; E78.00 Pure hypercholesterolemia, unspecified; E66.9 Obesity, unspecified; E11.9 Type 2 diabetes mellitus without complications; Z88.1 Allergy status to other antibiotic agents; Z88.2 Allergy status to sulfonamides; Z88.8 Allergy status to other drugs, medicaments and biological substances; Z79.4 Long term (current) use of insulin; Z79.899 Other long term (current) drug therapy; Z90.49 Acquired absence of other specified parts of digestive tract; Z68.42 Body mass index [BMI] 45.0-49.9, adult
CPT/HCPCS: 36415; 80053; 84484; 96360; 99284-25; J7030

== ENCOUNTER 2025-04-27 13:20 | Emergency (ER) | payer BC, OTHER ==
[2025-04-27] MEDS ORDERED: Sodium Chloride 0.9% 10 ML Syringe FLUSH PRN (13:36)
[2025-04-27 13:57] LABS: BASOPHILS ABSOLUTE AUTO 0.1 x10-3/uL (0.0-0.1); BASOPHILS PERCENT AUTO 1.0 % (0.2-1.5); EOSINOPHILS ABSOLUTE AUTO 0.3 x10-3/uL (0.0-0.8); EOSINOPHILS PERCENT AUTO 3.3 % (0.6-8.1); LYMPHOCYTES ABSOLUTE AUTO 1.9 x10-3/uL (1.0-4.4); LYMPHOCYTES PERCENT AUTO 21.1 % (18.4-52.1); MEAN PLATELET VOLUME 8.5 fL (7.1-12.4); MONOCYTES ABSOLUTE AUTO 0.8 x10-3/uL (0.3-1.0); MONOCYTES PERCENT AUTO 9.0 % (4.4-15.7); NEUTROPHILS ABSOLUTE AUTO 5.9 x10-3/uL (1.5-6.3); NEUTROPHILS PERCENT AUTO 65.6 % (30.8-76.2); PLATELET COUNT,PLT 240 x10(3)uL (151-488); RED BLOOD CELL COUNT 4.85 x10(6)uL (3.60-5.20); RED CELL DISTRIBUTION WIDTH 14.8 % (12.3-16.5); WHITE BLOOD CELL COUNT,WBC 9.1 x10-3/uL (3.0-10.3)
[2025-04-27 14:04] LABS: BLOOD UREA NITROGEN,BUN 9 mg/dL (7-18); CARBON DIOXIDE,CO2 28 mmol/L (21-32); CHLORIDE,CL 109 mmol/L (100-110); CREATININE 0.8 mg/dL (0.55-1.02); ESTIMATED GFR 84 mL/min (>60); GLUCOSE RANDOM 107 mg/dL (80-116); POTASSIUM,K 3.8 mmol/L (3.5-5.3); SODIUM,NA 145 mmol/L (135-145)
[2025-04-27 14:10] LABS: A/G RATIO 0.8; ALANINE AMINOTRANSFERASE,ALT 18 U/L (12-36); ASPARTATE AMNIOTRANSFERASE,AST 21 IU/L (5-25); BILIRUBIN TOTAL 0.6 mg/dL (0.1-1.3); PROTEIN TOTAL,TP 6.9 g/dL (6.0-8.0)
[2025-04-27 14:13] VITALS: BP 130/61; PULSE 73
[2025-04-27 14:13] LABS: PRO B-TYPE NATRIUR PEPT,BNPPRO 455.0 pg/mL (<=125)
[2025-04-27] MEDS: Iopamidol 755 Mg/ML 100 ML Bottle IV SCH (14:44)
[2025-04-27] MEDS: Ketorolac 30 MG/ML SDV IVPUSH ONE (16:58)
== END 2025-04-27 18:15 | disposition home or self-care (01) ==
LOC: FB.ED 13:20
DX: R55 Syncope and collapse (principal); S93.602A Unspecified sprain of left foot, initial encounter; S80.02XA Contusion of left knee, initial encounter; S80.01XA Contusion of right knee, initial encounter; M94.0 Chondrocostal junction syndrome [Tietze]; I11.0 Hypertensive heart disease with heart failure; I50.9 Heart failure, unspecified; J44.89 Other specified chronic obstructive pulmonary disease; E66.9 Obesity, unspecified; E11.9 Type 2 diabetes mellitus without complications; Z88.8 Allergy status to other drugs, medicaments and biological substances; Z88.2 Allergy status to sulfonamides; Z79.4 Long term (current) use of insulin; Z79.899 Other long term (current) drug therapy; Z90.49 Acquired absence of other specified parts of digestive tract; Z68.41 Body mass index [BMI] 40.0-44.9, adult; X50.1XXA Overexertion from prolonged static or awkward postures, initial encounter
CPT/HCPCS: 36415; 70450; 70450-26; 71045; 71045-26; 71275; 71275-26; 735622650; 73562-50; 73630-26-LT; 73630-LT; 80053; 83735; 83880; 84484; 85025; 85379; 96374; 96375; 99285-25; A9270-GY; J1885; J3360; J7512; Q9967